=== PATIENT | male | born 1990 | race Caucasian/White ===

== ENCOUNTER 2022-05-30 10:23 | Emergency (ER) | payer OTHER, SELFPAY ==
[2022-05-30 10:36] VITALS: BP 132/96; PULSE 77; RESP 18; TEMP 36.3; O2SAT 100
--- NOTE | 2022-05-30 10:52 | ED.GENADULT ---
HPI - General Adult General Chief complaint: Ear Stated complaint: Rt ear pain History of Present Illness HPI narrative: Patient is a 32-year-old male who presents to the [facility] via [facility] for an evaluation of right ear pain that began last night. Additionally, he reports a fullness sensation. He also reports a sore throat and postnasal drip that began 3 to 4 days prior to ear pain. DayQuil provides some relief. He has had no ear pain relief after attempting to use peroxide in right ear. Nothing worsens symptoms. Patient 2-year-old daughter has RSV. Related Data Home Medications Medication Instructions Recorded Confirmed lisinopril 10 mg tablet 10 mg DAILY 09/02/19 05/30/22 Allergies Allergy/AdvReac Type Severity Reaction Status Date / Time No Known Allergies Allergy Verified 05/30/22 10:47 Review of Systems Review of Systems: Pertinent negatives fever, chills, sweats, change in appetite, poor p.o. intake, malaise, headache, sinus problems, tinnitus, vertigo, lightheadedness, hearing loss, muffled hearing, ear drainage, nausea, vomiting, drooling, difficulty swallowing, cough, shortness of breath, lymphadenopathy, chest pain, heart palpitations, and heart murmur. [facility] Past Medical History Medical History Hypertension Social History Social History Gender identity (if verbalized by the patient): Male Exam Narrative: GENERAL: Well-appearing, well-nourished, and in no acute distress. HEAD: Normocephalic, atraumatic. No sinus tenderness or facial swelling appreciated. EYES: PERRLA and EOMI. No evidence of erythema, swelling, or drainage. ENT: Bilateral external ears and ear canals normal. Left TM normal. Right TM with marked erythema and bulging. Moderate amount of opaque fluid noted to right TM. No TM perforation. Nares clear, no rhinorrhea or epistaxis. Bilateral turbinates without erythema/ swelling. Mucous membranes moist and pink. Uvula is midline without erythema and swelling. No evidence of petechial rash, cobblestoning, lesions, ulcers, erythema, swelling, exudates, peritonsillar abscess, tenting, or drooling. Breath odor and voice normal. NECK: Supple. No Lymphadenopathy or nuchal rigidity appreciated. CHEST: Bilateral lung dalal are clear to auscultation. No respiratory distress. No evidence of cough or pleuritic cp upon examination. HEART: Regular rate and rhythm. No murmur, gallop, or rub heard. EXTREMITIES: Normal range of motion. No edema. SKIN: Warm, dry, no rash. NEURO: No focal deficits. Alert and oriented x3. Course Course Emergency Course: The patient/guardian displays adequate decision making capability and despite a detailed discussion of alternatives, benefits, risks, and consequences refuses rapid COVID, rapid strep, and influenza testing. Level of Care: Express Care Visit Vital Signs Vital signs: Vital Signs Temperature 97.3 F L 05/30/22 10:36 Pulse Rate 77 05/30/22 10:36 Respiratory Rate 18 05/30/22 10:36 Blood Pressure 132/96 H 05/30/22 10:36 Pulse Oximetry 100 05/30/22 10:36 Oxygen Delivery Room Air 05/30/22 10:36 Temperature 97.3 F L 05/30/22 10:36 Pulse Rate 77 05/30/22 10:36 Respiratory Rate 18 05/30/22 10:36 Blood Pressure 132/96 H 05/30/22 10:36 Pulse Oximetry 05/30/22 10:36 Oxygen Delivery Room Air 05/30/22 10:36 Medical Decision Making Differential Diagnosis Differential Diagnosis: AOM, EOM, URI Vital Signs Vital Signs: Vital Signs Temperature 97.3 F L 05/30/22 10:36 Pulse Rate 77 05/30/22 10:36 Respiratory Rate 05/30/22 10:36 Blood Pressure 132/96 H 05/30/22 10:36 Pulse Oximetry 100 05/30/22 10:36 Oxygen Delivery Room Air 05/30/22 10:36 Temperature 97.3 F L 05/30/22 10:36 Pulse Rate 77 05/30/22 10:36 Respiratory Rate 05/30/22 10:36 Bl
== END 2022-05-30 11:05 | disposition home or self-care (01) ==
PROVIDERS: Emergency Provider Nurse Practitioner Family
DX: H66.91 Otitis media, unspecified, right ear (principal); I10 Essential (primary) hypertension
CPT/HCPCS: 99213; G0463

== ENCOUNTER 2024-09-16 09:31 | Emergency (ER) | payer OTHER, SELFPAY ==
[2024-09-16 09:55] VITALS: BP 135/96; PULSE 63; RESP 18; TEMP 36.1; O2SAT 100
--- NOTE | 2024-09-16 10:46 | ED_ITS ---
HPI - Skin/Abscess/Foreign Bdy General Chief complaint: Skin/Abscess/Foreign Body Stated complaint: rt foot pain Source: patient Mode of arrival: ambulatory Limitations: no limitations History of Present Illness HPI narrative: 34-year-old male presents to [facility] with complaints of pain, swelling, erythema and warmth to joint to right great toe for the past 5 days. Patient reports he was evaluated by his primary care provider and given prednisone for unknown diagnosis. Patient reports he is concerned about gout. Patient denies injury to area. Patient denies fever, body aches, chills, nausea vomiting or diarrhea. Onset (ago): day(s) (5) Relieving factors: none Exacerbating factors: palpation and movement Treatments prior to arrival: corticosteroid Related Data Home Medications ?Medication ?Instructions ?Recorded ?Confirmed ?Last Taken ?Type lisinopril 10 mg tablet 10 mg DAILY 09/02/19 05/30/22 Unknown History prednisone 20 mg tablet mg 09/16/24 Unknown History Allergies Allergy/AdvReac Type Severity Reaction Status Date / Time No Known Allergies Allergy Verified 09/16/24 10:10 Review of Systems Constitutional: Constitutional: Denies chills, Denies fatigue, Denies fever(s) and Denies weakness ENT: Denies nasal congestion and Denies sore throat Respiratory: Respiratory: Denies cough, Denies dyspnea and Denies wheezing Gastrointestinal: Gastrointestinal: Denies diarrhea, Denies nausea and Denies vomiting Musculoskeletal: Comments: Pain, swelling, warmth and redness to joint of right great toe Neurologic: Denies dizziness, Denies headache(s) and Denies focal weakness PMFSH Past Medical History Medical History Hypertension Social History Social History Gender identity (if verbalized by the patient): Male Exam Const: General: healthy appearing and no acute distress Nutritional Appearance: well nourished Orientation/consciousness: patient oriented x3 Limitations: no limitations HENMT: Head: normal to inspection Eyes: Conjunctivae: conjunctivae normal Pupils: Equal, round and reactive pupils present Neck: Neck: normal visual inspection Resp: Effort & Inspection: normal respiratory effort and not labored Auscultation: clear to auscultation bilaterally, no crackles, no rales, no rhonchi and no wheezes Cardio: Rate: regular rate Rhythm: regular rhythm Heart sounds: no murmurs Skin: Other: Redness, warmth and mild swelling noted to MTP joint of right great toe; symptoms are likely representation of gout. Neuro: General: patient oriented x3 and moves all extremities Speech: normal speech Other: Patient limping with ambulation Psych: Mental Status: mental status grossly normal Affect: normal affect Course Course Level of Care: Express Care Visit Vital Signs Vital signs: Vital Signs Temperature 36.1 C L 09/16/24 09:55 Pulse Rate 63 09/16/24 09:55 Respiratory Rate 18 09/16/24 09:55 Blood Pressure 135/96 H 09/16/24 09:55 Pulse Oximetry 100 09/16/24 09:55 Oxygen Delivery Room Air 09/16/24 09:55 Temperature 36.1 C L 09/16/24 09:55 Pulse Rate 63 09/16/24 09:55 Respiratory Rate 18 09/16/24 09:55 Blood Pressure 135/96 H 09/16/24 09:55 Pulse Oximetry 100 09/16/24 09:55 Oxygen Delivery Room Air 09/16/24 09:55 MDM - Skin/Abscess/Foreign Bdy MDM Narrative Medical decision making narrative: Discussed gout and dietary recommendations. Encouraged patient follow-up with primary care provider discussed allopurinol. Educated patient to proceed to the emergency room if symptoms worsen Differential Diagnosis Differential diagnosis: Likely other (Cellulitis, insect bite) Critical Care Time Critical Care Time Critical Care Time: No Discharge Plan Discharge Clinical Impression: Gout Qualifiers: Gout site: toe Gout etiology: unspecified cause Chronicity: acute Laterality: right Qualified Code(s): M10.9 - Gout, unspecified Patient Disposition: Home, Self-Care Condition: Stable Instructions: Low Purine Diet (ED), Gout (ED) Additional Instructions: Elevate right foot apply cool compresses to area of pain Take colchicine as prescribed Take indomethacin as prescribed for pain, do not take other NSAIDs while taking medication Follow-up with primary care provider to discuss allopurinol Proceed to the emergency room if symptoms worsen Patient Language: Syrian Prescriptions: New colchicine 0.6 mg capsule 0.6 mg PO DIRECTED Qty: 3 0RF Rx Instructions: Take 2 capsules (1.2mg) x1, then 1 capsule (0.6mg) 1 hour later indomethacin 50 mg capsule 50 mg PO BID 7 Days Qty: 14 0RF Rx Instructions: administer with food or milk No Action prednisone 20 mg tablet lisinopril 10 mg tablet 10 mg DAILY Follow-up/Referrals: UNKNOWN,DOCTOR [Primary Care Provider] - Time of Disposition: 10:53
--- OUTSIDE RECORDS SUMMARY | 2024-09-23 12:02 | XMS_ITS | Clinical Summary ---
Author Organization [facility] Address [address] [place] [address]. [place] [address] [place] [address] Care Team Providers Care Air Liaison And Special Staff Name Role Phone Myron Sandhu MD Primary Care Provider + Allergies No known active allergies Medications lisinopril (PRINIVIL) 20 MG tabletIndication s:Essential hypertension TAKE 1 TABLET BY MOUTH EVERY DAY 30 tablet 4 Active colchicine 0.6 MG tabletIndication s:Idiopathic gout involving toe of right foot, unspecified chronicity Take 1 tablet (0.6 mg total) by mouth 3 (three) times daily. 15 tablet 4 Active allopurinol (ZYLOPRIM) 100 MG tabletIndication s:Idiopathic gout involving toe of right foot, unspecified chronicity Take 1 tablet (100 mg total) by mouth daily. 30 tablet 4 Active traMADol (ULTRAM) 50 MG tabletIndication s:Acute Pain < 7 Day Supply Take 1 tablet (50 mg total) by mouth 3 (three) times daily as needed for Pain. Indication s: Acute Pain < 7 Day Supply 21 tablet 4 025 Active lisinopril (PRINIVIL) 20 MG tabletIndication s:Essential hypertension TAKE 1 TABLET BY MOUTH EVERY DAY 30 tablet 4 024 Discontinued predniSONE (DELTASONE) 20 MG tabletIndication s:Idiopathic gout involving toe of right foot, unspecified chronicity Take 1 tablet (20 mg total) by mouth 2 (two) times daily for 7 days. 14 tablet 4 024 Active Problems Problem Noted Date Diagnosed Date Essential hypertension 11/22/2020 Encounters Date Type Department Care Team Description 09/22/2024 8:05 AM YEAST DISTILLER Hospital Encounter [facility] [address] [place] [address] Myron Sandhu MD Arrived 09/22/2024 Telephone [facility] [address] [place] [address] Myron Sandhu MD Lab Results; Pain; Medication Request 09/22/2024 Travel 09/18/2024 Telephone [facility] [address] [place] [address] Myron Sandhu MD Medication Request 09/13/2024 9:40 AM YEAST DISTILLER Office Visit [facility] [address] [place] [address] Myron Sandhu MD Arthritis (/Flare up in right big toe) 09/13/2024 Travel from Last 3 Months Immunizations Name Administration Dates Next Due Dtap 02/03/1994, 0,1989,1989,0 1989 Hepatitis B (Generic: Adult) 04/16/2014,12/06/19 14,11/02/2013 Hepatitis B Pediatric 05/14/1993,10/23/1992,06/28 MMR 02/03/1994,07/25/1990 Opv 02/03/1994,07/25/1990,1989 ,1989 Synagis (palivizumab) 100mg/mL 07/25/1990 Td 01/25/2013,11/23/2002 Tdap (Adacel) 08/27/2021,11/17/2002 Family History Medical History Relation Comments Hypertension Father Hypertension Paternal Grandfather Stroke Paternal Grandfather Dementia Paternal Grandmother Relation Status Comments Father Alive Mother Alive Paternal Grandfather Paternal Grandmother Social History Tobacco Use Types Packs/Day Years Used Date Smoking Tobacco: Never Smokeless Tobacco: Current Chew Tobacco Cessation:Ready to Q uit: Yes; Counseling Given: Yes Comments:Zyn pouches Alcohol Use Standard Drinks/Week Comments Yes 0 (1 standard drink = 0.6 oz pur e alcohol) PHQ-2 Answer Date Recorded Patient Health Questionnaire-2 Score 0 09/13/2024 Sex and Gender Information Value Date Recorded Sex Assigned at Not on file Legal Sex Male 3:35 PM CDT Gender Identity Male 01/02/2022 9:13 AM CDT Sexual Orientation Straight 01/02/2022 9: 13 AM CDT Travel History Travel Start Travel End [place] 08/14/2024 09/13/2024 Last Filed Vital Signs Vital Sign Reading Time Taken Comments Blood Pressure 152/84 09/13/2024 9:31 AM YEAST DISTILLER Pulse 101 09/13/2024 9:31 AM YEAST DISTILLER Temperature 36.3 ??C (97.4 ??F) 09/13/2024 9:31 AM CS T Respiratory Rate 20 09/13/2024 9:31 AM YEAST DISTILLER Oxygen Saturation 99% 09/13/2024 9:31 AM YEAST DISTILLER Inhaled Oxygen Concentration - - Weight 107.2 kg (236 lb 6.4 oz) 09/13/2024 9:31 AM YEAST DISTILLER Height 175.3 cm (5' 9 ) 09/13/2024 9:31 AM YEAST DISTILLER Body Mass Index 34.91 09/13/2024 9:31 AM YEAST DISTILLER Plan of Treatment Health Maintenance Due Date Last Done Comments Hepatitis C 2007 COVID-19 Vaccine ( season) 2024 Influenza Adult (#1) 2024 Annual Physical 08/23/2024 08/23/2023 DTaP, Tdap and Td Vaccines (10 - Td or Tdap) 08/27/2031 08/27/2021, 01/25/2013, 11/23/2002, Additional history exists Hepatitis B Vaccines Completed 04/16/2014, 12/05/2013, 11/02/2013, Additional history exists HPV Vaccines Aged Out No longer eligi ble based on patient's age to complete this topic Meningococcal Vaccine Aged Out No odalis tania eligible based on patient's age to complete this topic Pneumococcal Vaccine: Pediatrics (0 to 5 Years) and At-Risk Patients (6 to 64 Years) Aged Out No longer eligible based on patient's age to complete this topic RSV Immunizations Under 20 Months Aged Out No longer eligible based on patient's age to complete this topic Procedures Procedure Name Priority Date/Time Associated Diagnosis Comments URIC ACID BLOOD Routine 09/22/2024 8:12 AM YEAST DISTILLER Idiopathic gout involving toe of right foot, unspecified chronicity LIPID PANEL Routine 09/22/2024 8:12 AM YEAST DISTILLER Hyperlipidemia, unspecified hyperlipidemia type COMPREHENSIVE METABOLIC PANEL Routine 09/22/2024 8:12 AM YEAST DISTILLER Essential hypertension Hyperlipidemia, unspecified hyperlipidemia type from Last 3 Months Results * (ABNORMAL) COMPREHENSIVE METABOLIC PANEL (09/22/2024 8:12 AM YEAST DISTILLER) GLUCOSE 146(H) 70 - 99 MG/DL 09/22/2024 9:36 AM [facility] BUN 15 7 - 18 MG/DL 09/22/2024 9:36 AM [facility] CREATININE S/P/B 1.21 0.7 - 1.3 MG/DL 09/22/2024 9:36 AM [facility] SODIUM S/P/B 137 136 - 145 MMOL/L 09/22/2024 9:36 AM [facility] POTASSIUM S/P/B 4.9 3.5 - 5.1 MMOL/L 09/22/2024 9:36 AM [facility] CHLORIDE S/P/B 99(L) 100 - 108 MMOL/L 09/22/2024 9:36 AM [facility] CO2 31.6 21 - 32 MMOL/L 09/22/2024 9:36 AM [facility] CALCIUM S/P/B 9.1 8.5 - 10.1 MG/DL 09/22/2024 9:36 AM [facility] BILIRUBIN TOTAL S/P/B 0.9 0.2 - 1.2 MG/DL 09/22/2024 9:36 AM [facility] Comment: THIS ASSAY IS NOT RECOMMENDED FOR PATIENTS UNDERGOING TREATMENT WITH ELTROMBOPAG DUE TO THE POTENTIAL FOR FALSELY ELEVATED RESULTS. TOTAL PROTEIN S/P/B 7.9 6.4 - 8.2 G/DL 09/22/2024 9:36 AM [facility] ALBUMIN S/P/B 3.8 3.4 - 5.0 G/DL 09/22/2024 9:36 AM [facility] AST 20 15 - 37 U/L 09/22/2024 9:36 AM [facility] ALT 42 16 - 60 U/L 09/22/2024 9:36 AM [facility] ALKALINE PHOSPHATASE S/P/B 55 50 - 136 U/L 09/22/2024 9:36 AM [facility] ANION GAP 6.4 5 - 15 MMOL/L 09/22/2024 9:36 AM [facility] BUN CREATININE RATIO 12.4 6 - 26 09/22/2024 9:36 AM [facility] A/G RATIO 0.9(L) 1.0 - 2.0 RATIO 09/22/2024 9:36 AM [facility] GFR ESTIMATE 80(L) >90 ML/MIN/1.7 3 M2 09/22/2024 9:36 AM [facility] Comment: NOTE: eGFR is not calculated for patients <18 years of age. This is an estimated GFR calculation using the new CKD EPI creatinine equation without race and so does not require a correction factor for race. This estimated GFR should not be used for calculating drug doses. 09/22/2024 8:12 AM YEAST DISTILLER Myron Sandhu MD LABORATORY Final Re sult [facility] [address] [place] [address], * LIPID PANEL (09/22/2024 8:12 AM [facility] Signature CHOLESTEROL 150 <200 MG/DL 09/22/2024 9:36 AM [facility] TRIGLYCERIDES 132 <150 MG/DL 09/22/2024 9:36 AM [facility] HDL 53 >40.0 MG/DL 09/22/2024 9:36 AM [facility] LDL (CALCULATED) 71 <100 MG/DL 09/22/20 9:36 AM [facility] NON HDL CHOLESTEROL 97 <130 MG/DL 09/22 9:36 AM [facility] Comment: NOTE: WHEN THE TRIGLYCERIDES ARE >200 mg/dL, NON HDL C IS A SECONDARY TARGET OF THERAPY, WITH A GOAL 30 mg/dL HIGHER THAN THE IDENTIFIED LDL C GOAL. CHOL/HDL RATIO 2.8 0.0 - 4.5 09/22/2024 9:36 AM [facility] VLDL CALCULATION 26 5 - 55 MG/DL 09/22/2024 9:36 AM [facility] LIPID INTERPRETATION 09/22/2024 9:36 AM [facility] Comment: NIH CONCENSUS REPORT RECOMMENDATIONS: ?ADULT ?CHILD ??LOW RISK: ?CHOLESTEROL ? <200 ? <170 ?TRIGLYCERIDE ?<150 ?--- ?HDL ? >=60 ?--- ?LDL ? <100 ? <110 ??BORDERLINE: ?CHOLESTEROL ? 200-239 ?? 170-199 ?TRIGLYCERIDE ?150-199 ? --- ?HDL ?40-59 ?--- ?LDL ? 100-159 ?? 110-129 ??HIGH RISK: ?CHOLESTEROL ? >=240 ?>=200 ?TRIGLYCERIDE ?>=200 ? --- ?HDL ?<40 ?--- ?LDL ? >=160 ?>=130 09/22/2024 8:12 AM YEAST DISTILLER Myron Sandhu MD LABORATORY Final Ara crowell Performing Organization Address [facility] de Phone Number [facility] [address] [place] [address], * (ABNORMAL) URIC ACID BLOOD (09/22/2024 8:12 AM YEAST DISTILLER) URIC ACID 7.9(H) 3.5 - 7.2 MG/DL 09/22/2024 9:36 AM YEAST DISTILLER [facility] 09/22/2024 8:12 AM YEAST DISTILLER Myron Sandhu MD LABORATORY Final Re sult Performing Organization Address [facility] Co de Phone Number [facility] [address] [place] [address], from Last 3 Months Insurance [employer] [facility] Care Teams Air Liaison And Special Staff Relationship Specialty Start Date End Date Myron Sandhu MD [address] [facility] [address] [place] [address] PCP - General FAMILY PRACTICE 12/31/21
--- OUTSIDE RECORDS SUMMARY | 2024-09-23 12:02 | XMS_ITS | Encounter Summary ---
Author Organization [facility] Address [address] [place] [address]. [place], [place] [id number] [place] [address] Care Team Providers Care Project Coach Name Role Phone Myron Sandhu MD Primary Care Provider + Encounter Details Date Type Department Care Team (Latest Contact Info) Description 09/13/2024 Travel Social History Tobacco Use Types Packs/Day Years Used Date Smoking Tobacco: Never Smokeless Tobacco: Current Chew Comments:Zyn pouches Alcohol Use Standard Drinks/Week Comments [...] CDT Travel History Travel Start Travel End [place] 08/14/2024 09/13/2024 documented as of this encounter Plan of Treatment Not on file documented as of this encounter Visit Diagnoses Not on filedocumented in this encounter Additional Health Concerns Assessment Noted Time PHQ-9 Depression Total Score: 11 023 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
--- OUTSIDE RECORDS SUMMARY | 2024-09-23 12:03 | XMS_ITS | Encounter Summary ---
Author Organization [facility] Address [address] [place] [address]. [place], [place] [id number] [place], [place] [id number] Care Team Providers Care Manager Card Name Role Phone Enrico Roe MD Primary Care Provider Rachel vailable Encounter Details Date Type Department Care Team (Latest Contact Info) Description 09/07/2021 Travel Social History Tobacco Use Types Packs/Day Years Used Date Smoking Tobacco: Never Smokeless Tobacco: Current Chew Alcohol Use Standard Drinks/Week Comments Yes 0 (1 standard drink = 0.6 oz pur e alcohol) PHQ-2 Answer Date Recorded PHQ-2 Score - If the patient scores above 3, please move on to questions 3-9 0 11/22/2020 Sex and Gender Information Value Date Recorded Sex Assigned at Not on file Legal Sex Male 3:35 PM CDT Gender Identity Male 01/02/2022 9:13 AM CDT Sexual Orientation Straight 01/02/2022 9: 13 AM CDT Travel History Travel Start Travel End [place] 08/14/2024 09/13/2024 COVID-19 Exposure Response Date Recorded In the last month, have you been in contact with someone who was confirmed or suspected to have Coronavirus / COVID-19? 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
--- OUTSIDE RECORDS SUMMARY | 2024-09-23 12:03 | XMS_ITS | Encounter Summary ---
Author Organization [facility] Address [address] [place] [address]. [place] [address] [place] [address] Care Team Providers Care Loan Documents Closer Name Role Phone Enrico Roe MD Primary Care Provider Rachel vailable Reason for Visit * Reason Comments Establish Care new pt Encounter Details Date Type Department Care Team (Late st Contact Info) Description 11/22/2020 10:40 AM OBSTETRICIAN AND GYNAECOLOGIST Office Visit [address] [phone] Enrico Roe MD Establish Care (new pt) Social History Tobacco Use Types Packs/Day Years [...] CDT Travel History Travel Start Travel End [place] 08/14/2024 09/13/2024 COVID-19 Exposure Response Date Recorded In the last month, have you been in contact with someone who was confirmed or suspected to have Coronavirus / COVID-19? No / Unsure 11/22/2020 10:11 AM OBSTETRICIAN AND GYNAECOLOGIST documented as of this encounter Last Filed Vital Signs Vital Sign Reading Time Taken Comments Blood Pressure 120/82 11/22/2020 10:56 AM OBSTETRICIAN AND GYNAECOLOGIST Pulse 90 11/22/2020 10:24 AM OBSTETRICIAN AND GYNAECOLOGIST Temperature 36.4 ??C (97.6 ??F) 11/22/2020 10:[address] Respiratory Rate 18 11/22/2020 10:24 AM OBSTETRICIAN AND GYNAECOLOGIST Oxygen Saturation 99% 11/22/2020 10:24 AM OBSTETRICIAN AND GYNAECOLOGIST Inhaled Oxygen Concentration - - Weight 108.9 kg (240 lb) 11/22/2020 10:24 AM OBSTETRICIAN AND GYNAECOLOGIST Height 176.5 cm (5' 9.5 ) 11/22/2020 10:24 AM CS T Body Mass Index 34.93 11/22/2020 10:24 AM OBSTETRICIAN AND GYNAECOLOGIST documented in this encounter Progress Notes * Enrico Roe MD - 11/22/2020 10:40 AM CST REASON FOR VISIT Establish Care (new pt) HPI Presents to clinic to establish care History of hypertension Patient had established with a mental health clinic who recommended testosterone injections Patient has lab work today which notes a normal level of testosterone Patient would like significant amount or not he needs testosterone injections Patient initially went to that clinic due to weight loss concerns 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 the last few pounds he would like to He denies any fatigue, weakness, sexual performance issues Hypertension 144/86 initially in clinic today Pulse is 90 Patient states he has whitecoat syndrome Note home readings are anywhere from 118 systolic up to 140 systolic Has been on lisinopril 20 mg, was recently titrated up Denies headaches, vision changes, chest pain, shortness of breath, decreased urine output Skin lesion Small skin lesion on the lateral aspect of his leg, noticed a few days ago Has been using lotion without results No prior history of skin issues but states his dad has several issues the details of which she is not familiar Healthcare maintenance Patient denies any family history of colon or prostate cancer Patient has 1 sexual partner, monogamous, no reasonable. His partner is monogamous to the best of his knowledge Denies any urinary issues or concerns for STD PHQ-9 is negative REVIEW OF SYSTEMS 10 point ROS negative as otherwise specified in HPI History reviewed. No pertinent past medical history. Past Surgical History: Procedure Laterality Date ??? ANESTH,NOSE,SINUS SURGERY ??? FEMUR FRACTURE SURGERY Right Social History Tobacco Use ??? Smoking status: Never Smoker ??? Smokeless tobacco: Current User Types: Chew Substance Use Topics ??? Alcohol use: Yes ??? Drug use: Never Family History Problem Relation Name Age of Onset ??? Hypertension Father ??? Hypertension Paternal Grandfather No Known Allergies Outpatient Medications Marked as Taking for the 11/22/20 encounter (Office Visit) with Enrico Roe MD Medication Sig Dispense Refill ??? lisinopril 20 MG tablet Take 20 mg by mouth daily. ??? triamcinolone 0.1 % ointment Apply topically 2 (two) times daily. 15 g 0 PHYSICAL EXAM Physical Exam Vitals signs and nursing note reviewed. Constitutional: General: He is not in acute distress. Appearance: He is well-developed. Comments: Overall muscular in appearance HENT: Head: Normocephalic and atraumatic. Eyes: General: No scleral icterus. Extraocular Movements: Extraocular movements intact. Conjunctiva/sclera: Conjunctivae normal. Neck: Musculoskeletal: Normal range of motion. Cardiovascular: Rate and Rhythm: Normal rate and regular rhythm. Heart sounds: Normal heart sounds. No murmur. Pulmonary: Effort: Pulmonary effort is normal. No respiratory distress. Breath sounds: Normal breath sounds. No wheezing. Abdominal: General: Bowel sounds are normal. There is no distension. Palpations: Abdomen is soft. Tenderness: There is no abdominal tenderness. Musculoskeletal: Normal range of motion. Skin: General: Skin is warm and dry. Findings: No rash. Comments: Left lateral lower extremity has small approximately 3 mm ovoid patch that is nonscaling,slightly erythematous. Under dermoscopy there is no carlos formation or telangiectasia, no scale observed Neurological: General: No focal deficit present. Mental Status: He is alert. Cranial Nerves: No cranial nerve deficit. Sensory: No sensory deficit. Coordination: Coordination normal. Gait: Gait normal. Psychiatric: Mood and Affect: Mood normal. Behavior: Behavior normal. Filed Vitals: 11/22/20 1024 11/22/20 1056 BP: (!) 144/86 120/82 Pulse: 90 Resp: 18 Temp: 97.6 ??F (36.4 ??C) SpO2: 99% Weight: 108.9 kg (240 lb) Height: 5' 9.5 (1.765 m) Body mass index is 34.93 kg/m??. ASSESSMENT AND PLAN 1. Skin lesion triamcinolone 0.1 % ointment 2. Essential hypertension 1. No concerning features under dermoscopy, likely eczema. Urged to trial regular skin moisturization with water-based lubricant. If no results in a week or 2 can trial triamcinolone as prescribed above. 2. Repeat blood pressure was within normal limits. We will continue lisinopril 20 mg daily. Reviewed lab work which patient brought with him today, no concerns for electrolyte derangement. Needs repeat labs in June 2021. Healthcare maintenance Routine labs as above No family history which would indicate early need for prostate or colon screening Counseled on regular diet and exercise Return in about 8 months (around 07/22/2021). Enrico oRe MD 11/22/2020 ETRICIAN AND GYNAECOLOGIST documented in this encounter Plan of Treatment Not on file documented as of this encounter Visit Diagnoses Diagnosis Skin lesion- Primary Unspecified disorder of skin and subcutaneous tissue Essential hypertension Unspecified essential hypertension documented in this encounter Care Teams Loan Documents Closer Relationship Specialty Start Date End Date Enrico Roe MD PCP - General FAMILY PRACTICE 11/22/20 12/30/21 documented as of this encounter
--- OUTSIDE RECORDS SUMMARY | 2024-09-23 12:03 | XMS_ITS | Encounter Summary ---
Author Organization [facility] Address [address] [place] [address]. [place] [address] [place] [address] Care Team Providers Care Fresh Meat Grader Name Role Phone Myron Jc MD Primary Care Provider + Reason for Visit * Reason Comments General Illness Covid exposure 3-4 d ays ago, needs neg test to go back to work, has chest tightness Encounter Details Date Type Department Care Team (Late st Contact Info) Description 03/17/2022 2:20 PM CDT Office Visit [address] [phone] Lilo Butler, SERVICE MECHANIC [address] [facility] [address] [place] [address] General Illness (Covid exposure 3-4 days ago, needs neg test to go back to work, has chest tightness) Social History Tobacco Use Types Packs/Day Years Used Date Smoking Tobacco: Never Smokeless Tobacco: Current Chew Alcohol Use Standard Drinks/Week Comments Yes 0 (1 standard drink = 0.6 oz pur e alcohol) PHQ-2 Answer Date Recorded PHQ-2 Score - If the patient scores above 3, please move on to questions 3-9 0 03/17/2022 Sex and Gender Information Value Date Recorded Sex Assigned at Not on file Legal Sex Male 3:35 PM CDT Gender Identity Male 01/02/2022 9:13 AM CDT Sexual Orientation Straight 01/02/2022 9: 13 AM CDT Travel History Travel Start Travel End [place] 08/14/2024 09/13/2024 COVID-19 Exposure Response Date Recorded In the last 10 days, have ashley key been in contact with someone who was confirmed or suspected to have Coronavirus/COVID-19? Yes 03/17/2022 3:27 PM CDT documented as of this encounter Last Filed Vital Signs Vital Sign Reading Time Taken Comments Blood Pressure 136/92 03/17/2022 3:35 PM CDT Pulse 104 03/17/2022 3:35 PM CDT Temperature 36.1 ??C (97 ??F) 03/17/2022 3:35 PM CDT Respiratory Rate 16 03/17/2022 3:35 PM CDT Oxygen Saturation 99% 03/17/2022 3:35 PM CDT Inhaled Oxygen Concentration - - Weight 104.8 kg (231 lb) 03/17/2022 3:35 PM CDT Height 175.3 cm (5' 9 ) 03/17/2022 3:35 PM CDT Body Mass Index 34.11 03/17/2022 3:35 PM CDT documented in this encounter Patient Instructions * Patient Instructions* Lilo Butler NP - 03/17/2022 4:11 PM CDT COVID is a viral illness. At this time we have a medication called Paxlovid which certain patients can qualify for to help with symptoms. If this is an option for you, we have already discussed it and it has been prescribed. The other care is supportive care as below. - Increase fluid intake and get plenty of rest. - Sore throat-May try as needed: salt water gargles (1/4-1/2 teaspoon of salt per 8 oz glass warm water), ibuprofen (Advil) as directed on the bottle for age/weight--take with food, Chloroseptic spray as directed on the bottle for age/weight, cough drops as directed on the package for age/weight orhard candy, or teaspoon honey or heavy peach syrup. - Nasal congestion-May try as needed: Antwan's Vapor Rub, humidifier, nasal saline spray as well as nasal saline flushes/Hiwot Pot and Flonase. May try oral antihistamines (claritin/cara/zyrtec) as directed on the package for age/weight - Fever/Comfort: May try Tylenol (acetaminophen) or Advil/Motrin (ibuprofen) as directed on the bottle for age/weight as needed. - Cough: May also try teaspoon honey or heavy peach syrup every 4 hrs as needed. RED FLAGS for ED/911: - Any signs of dehydration; decrease intake of fluids, decrease in voids, unable to keep fluids down for over 24 hours. - Watch for signs and symptoms of respiratory distress including the following: shortness of breath, increased respiratory rate, wheezing, difficulty breathing, sternal notch/intercostal retractions,and/or accessory muscle use during respiration. Any for signs and symptoms of abdominal distress including: increase in frequency, intensity, and / or duration of abdominal pain; increased frequency of or worsening emesis, bilious emesis, and/ or bloody emesis; bloody stools; and / or increased distension of and / or firmness of abdomen. Guidelines for staying home and self isolation due to illness. - If you test positive for COVID-19, you must isolate, regardless of vaccination status. Stay home for 5 days. If you have no symptoms or your symptoms are resolving after 5 days, you can leave your house. Continue to wear a mask around others for 5 additional days. If you have a fever, continue to stay home until your fever resolves. Information on quarantining if you were exposed to someone with COVID-19: If you have been boosted OR completed the primary series of Pfizer or Moderna vaccine within the last 6 months OR completed the primary series of J&J vaccine within the last 2 months: Wear a maskaround others for 10 days. If you develop symptoms get a test and stay home. If you completed the primary series of Pfizer or Moderna vaccine over 6 months ago and are NOT boosted OR completed the primary series of J&J over 2 months ago and are NOT booster OR are unvaccinated ? Stay home for 5 days. After that continue to wear a mask around others for 5 additional days. o If you cannot quarantine, you must wear a mask for 10 days. ? If you develop symptoms get a test and stay home. documented in this encounter Progress Notes * Lilo Butler NP - 03/17/2022 2:20 PM CDT Reason for Visit: General Illness (Covid exposure 3-4 days ago, needs neg test to go back to work, has chest tightness) History of Present Illness: Arron Field is a 32-year-old male presenting today to [facility] in [place] complaining of dry cough and chest tightness for the past 4 days. Pt has not been taking anything for symptoms. Pt notes PMH as below. Pt continues to eat and drink well with adequ ate output. Pt admits to sick contacts via work. Pt denies other nausea, vomiting, diarrhea, abdominal pain, muscle pain and headache. Of note pt has tested himself at home with negative results. Pt is not vaccinated against COVID. ROS: Review of Systems HENT: Positive for congestion. Respiratory: Positive for cough and chest tightness. All other systems reviewed and are negative. Medications: Current Outpatient Medications: ??? lisinopril 20 MG tablet, Take 1 tablet (20 mg total) by mouth daily., Disp: 90 tablet, Rfl: 1 No Known Allergies No past medical history on file. Past Surgical History: Procedure Laterality Date ??? ANESTH,NOSE,SINUS SURGERY ??? FEMUR FRACTURE SURGERY Right Social History Socioeconomic History ??? Marital status: Tobacco Use ??? Smoking status: Never Smoker ??? Smokeless tobacco: Current User Types: Chew Substance and Sexual Activity ??? Alcohol use: Yes ??? Drug use: Never Family History Problem Relation Name Age of Onset ??? Hypertension Father ??? Hypertension Paternal Grandfather ??? Stroke Paternal Grandfather Family Status Relation Name Status ??? Mother Alive ??? Father Alive ??? PGF (Not Specified) Physical Exam Vitals reviewed. Constitutional: General: He is not in acute distress. Appearance: He is well-developed. He is diaphoretic. HENT: Right Ear: Tympanic membrane normal. Left Ear: Tympanic membrane normal. Nose: Mucosal edema and rhinorrhea present. Mouth/Throat: Uvula is midline. Mucous membranes are moist. Oropharyngeal exudate (PND) present. Eyes: Pupils: Pupils are equal, round, and reactive to light. Cardiovascular: Rate and Rhythm: Normal rate and regular rhythm. Heart sounds: Normal heart sounds. Pulmonary: Effort: Pulmonary effort is normal. No respiratory distress. Breath sounds: Normal breath sounds. Musculoskeletal: Cervical back: Normal range of motion. Skin: General: Skin is warm. Neurological: Mental Status: He is alert. Filed Vitals: 03/17/22 1535 BP: (!) 136/92 Pulse: 104 Resp: 16 Temp: 97 ??F (36.1 ??C) TempSrc: Temporal SpO2: 99% Weight: 104.8 kg (231 lb) Height: 5' 9 (1.753 m) Results for orders placed or performed in visit on 03/17/22 CORONAVIRUS (COVID-19) ANTIGEN Specimen: NASAL Result Value Ref Range CORONAVIRUS ANTIGEN IA POSITIVE NEGATIVE Internal Control: VALID VALID Diagnoses/Impression: 1. COVID CORONAVIRUS (COVID-19) ANTIGEN Recommendations and Plan: Rapid antigen testing for COVID-19 Positive in office today. Discussed differentials and etiologies. Reviewed supportive care as well. Encouraged good hand washing, temperature monitoring, cough hygiene and isolation of illness if fever begins. Discussed signs and symptoms of worsening and when to report to the ED vs. PCP for follow. Pt demonstrated understanding. Reviewed guidelines from CDC with pending testing: Guidelines for staying home and self isolation due to illness. - If you test positive for COVID-19, you must isolate, regardless of vaccination status. ??? Stay home for 5 days. ??? If you have no symptoms or your symptoms are resolving after 5 days, you can leave your house. ??? Continue to wear a mask around others for 5 additional days. ??? If you have a fever, continue to stay home until your fever resolves. Information on quarantining if you were exposed to someone with COVID-19: ??? If you have been boosted OR completed the primary series of Pfizer or Moderna vaccine within the last 6 months OR completed the primary series of J&J vaccine within the last 2 months: Wear a mask around others for 10 days. If you develop symptoms get a test and stay home. ??? If you completed the primary series of Pfizer or Moderna vaccine over 6 months ago and are NOT boosted OR completed the primary series of J&J over 2 months ago and are NOT booster OR are unvaccinated ? Stay home for 5 days. After that continue to wear a mask around others for 5 additional days. o If you cannot quarantine, you must wear a mask for 10 days. ? If you develop symptoms get a test and stay home. LILO BUTLER NP Referring Provider: No ref. provider found PCP: MYRON JC MD Cosigned by Myron Jc MD at 03/20/2022 12:28 PM CDT documented in this encounter Plan of Treatment Not on file documented as of this encounter Procedures Procedure Name Priority Date/Time Associated Diagnosis Comments CORONAVIRUS (COVID-19) ANTIGEN Routine 03/17/2022 COVID documented in this encounter Results * (ABNORMAL) CORONAVIRUS (COVID-19) ANTIGEN (03/17/2022) CORONAVIRUS ANTIGEN IA POSITIVE( Crit) NEGATIVE [facility] ANA (9401), JESUS Internal Control: VALID VALID [employer] ANA (9401), JESUS Specimen from nose (specimen) NASAL STRUCTURE / Unknown 03/17/2022 us Lilo Butler SERVICE MECHANIC MICROBIOLOGY - [facility] Edited Result - Final [facility] ANA (9401), JESUS [address] [facility] [address] [place] [address], documented in this encounter Visit Diagnoses Diagnosis COVID- Primary documented in this encounter Additional Health Concerns Infection Onset Date Last Indicated Resolved Time COVID-19 Rule Out 03/17/2022 03/17/2022 03/17/2022 4:08 PM CDT documented as of this encounter Care Teams Fresh Meat Grader Relationship Specialty Start Date End Date Myron Jc MD [address] [place] [address] PCP - General FAMILY PRACTICE 12/31/21 documented as of this encounter
--- OUTSIDE RECORDS SUMMARY | 2024-09-23 12:03 | XMS_ITS | Encounter Summary ---
Author Organization [facility] Address [address] [place] [address]. [place], [place] [id number] [place] [id number] Care Team Providers Care Crosstie Inspector Name Role Phone Myron Sandhu MD Primary Care Provider + Encounter Details Date Type Department Care Team (Latest Contact Info) Description 09/16/2022 Travel Social History Tobacco Use Types Packs/Day Years Used Date Smoking Tobacco: Never Smokeless Tobacco: Current Chew Alcohol Use Standard Drinks/Week Comments Yes 0 (1 standard drink = 0.6 oz pur e alcohol) PHQ-2 Answer Date Recorded Patient Health Questionnaire-2 Score 1 09/16/2022 Sex and Gender Information Value Date Recorded Sex Assigned at Not on file Legal Sex Male 3:35 PM CDT Gender Identity Male 01/02/2022 9:13 AM CDT Sexual Orientation Straight 01/02/2022 9: 13 AM CDT Travel History Travel Start Travel End [place] 08/14/2024 09/13/2024 COVID-19 Exposure Response Date Recorded In the last 10 days, have yo u been in contact with someone who was confirmed or suspected to have Coronavirus/COVID-19? No / Unsure 09/16/2022 8:02 AM TOMOGRAPHIC TECH documented as of this encounter Plan of Treatment Not on file documented as of this encounter Visit Diagnoses Not on filedocumented in this encounter Additional Health Concerns Assessment Noted Time PHQ-9 Depression Total Score: 9 09/16/20 22 8:27 AM TOMOGRAPHIC TECH documented as of this encounter Care Teams Crosstie Inspector Relationship Specialty Start Date End Date Myorn Sandhu MD [address] [facility] [address] [place] [address] PCP - General FAMILY PRACTICE 12/31/21 documented as of this encounter
--- OUTSIDE RECORDS SUMMARY | 2024-09-23 12:03 | XMS_ITS | Encounter Summary ---
Author Organization [facility] Address [address] [place] [address]. [place], [place] [id number] [place] [address] Care Team Providers Care Powdered Metal Supervisor Name Role Phone Myron Sandhu MD Primary Care Provider + Encounter Details Date Type Department Care Team (Latest Contact Info) Description 08/25/2022 Travel Social History Tobacco Use Types Packs/Day [...] CDT Travel History Travel Start Travel End [place] 08/14/2024 09/13/2024 COVID-19 Exposure Response Date Recorded In the last 10 days, have yo u been in contact with someone who was confirmed or suspected to have Coronavirus/COVID-19? No / Unsure 08/25/2022 4:31 PM SLIDE ATTENDANT documented as of this encounter Plan of Treatment Not on file documented as of this encounter Visit Diagnoses Not on filedocumented in this encounter Care Teams Powdered Metal Supervisor Relationship Specialty Start Date End Date Myron Sandhu MD [address] [facility] [address] [place] [address] PCP - General FAMILY PRACTICE 12/31/21 documented as of this encounter
--- OUTSIDE RECORDS SUMMARY | 2024-09-23 12:03 | XMS_ITS | Encounter Summary ---
Author Organization [facility] Address [facility] [place] [address] [place] [address] Care Team Providers Care Elevator Technician Name Role Phone Enrico Roe MD Primary Care Provider Rachel vailable Reason for Visit * Reason Comments Cough Encounter Details Date Type Department Care Team (Late st Contact Info) Description 09/07/2021 3:35 PM TOOL SHAPER SETUP OPERATOR - 09/07/2021 4:00 PM [facility] Emergency [facility] Emergency Room [address] [place] [address] Malissa Ldebetter FNP [address] [place] [address] Cough Discharge Disposition: Home or Self Care (Routine Discharge) Social History Tobacco Use Types Packs/Day Years [...] CDT Travel History Travel Start Travel End [place] 08/14/2024 09/13/2024 COVID-19 Exposure Response Date Recorded In the last month, have you been in contact with someone who was confirmed or suspected to have Coronavirus / COVID-19? No / Unsure 09/07/2021 3:18 PM TOOL SHAPER SETUP OPERATOR documented as of this encounter Last Filed Vital Signs Vital Sign Reading Time Taken Comments Blood Pressure 175/91 09/07/2021 3:40 PM TOOL SHAPER SETUP OPERATOR Pulse 97 09/07/2021 3:40 PM TOOL SHAPER SETUP OPERATOR Temperature 37.2 ??C (98.9 ??F) 09/07/2021 3:40 PM CS T Respiratory Rate 20 09/07/2021 3:40 PM TOOL SHAPER SETUP OPERATOR Oxygen Saturation 97% 09/07/2021 3:40 PM TOOL SHAPER SETUP OPERATOR Inhaled Oxygen Concentration - - Weight 104.3 kg (230 lb) 09/07/2021 3:40 PM TOOL SHAPER SETUP OPERATOR Height 175.3 cm (5' 9 ) 09/07/2021 3:40 PM TOOL SHAPER SETUP OPERATOR Body Mass Index 33.97 09/07/2021 3:40 PM TOOL SHAPER SETUP OPERATOR documented in this encounter Discharge Instructions * Discharge Instructions* SHANTA Vinson - 09/07/2021 3:54 PM TOOL SHAPER SETUP OPERATOR Mr. Field, we are going to start you on steroids today that should help open up your lungs. I am also going go ahead and start her on some antibiotics today as I do hear a few sounds of the lung that would make me suspicious for pneumonia. SHAPER SETUP OPERATOR SHAPER SETUP OPERATOR * Attachments The following attachments cannot be sent through Care Everywhere. * Pneumonia Discharge Instructions, Adult (Montenegrin) * Wheezing (Montenegrin) documented in this encounter Medications at Time of Discharge doxycycline hyclate 100 MG capsule Take 1 capsule (100 mg total) by mouth 2 (two) times daily for 10 days. 20 capsule 09/07/2021 09/17/2021 lisinopril 20 MG tablet Take 20 mg by mouth daily. 09/05/2020 11/19/2021 predniSONE 20 MG tablet Take 3 tablets daily for 3 days then take 2 tablets daily for 3 days then take 1 tablet daily for 3 days and 18 tablet 09/07/2021 01/05/2022 documented as of this encounter ED Notes * SHANTA Vinson - 09/07/2021 3:55 PM CST Chief Complaint Chief Complaint Patient presents with ??? Cough History of Present Illness 31-year-old male into clinic for complaint of cough for the past 4 days. Feels like it is progressively getting worse. Bringing up quite a bit of stuff. It gags him when he is of vomiting. He statesthat he has little bit of discomfort in the lung itself. Denies any history of asthma or allergies.Has been taking xdhr-[id number] cold medications and it does help a little bit. He does have a at home. He has been on paternity leave so he has not been around anybody for the past several days. He is not concerned with Covid at this point because he literally has not been anywhere. Medical History ALLERGIES: No Known Allergies MEDICATIONS: Prior to Admission medications Medication Sig Start Date End Date Taking? Authorizing Provider doxycycline hyclate 100 MG capsule Take 1 capsule (100 mg total) by mouth 2 (two) times daily for 10 days. 09/07/21 09/17/21 Yes SHANTA Vinson predniSONE 20 MG tablet Take 3 tablets daily for 3 days then take 2 tablets daily for 3 days then take 1 tablet daily for 3 days and 09/07/21 Yes SHANTA Vinson lisinopril 20 MG tablet Take 20 mg by mouth daily. 09/05/20 Doc Abstract PAST MEDICAL HISTORY: History reviewed. No pertinent past medical history. PAST SURGICAL HISTORY: Past Surgical History: Procedure Laterality Date ??? ANESTH,NOSE,SINUS SURGERY ??? FEMUR FRACTURE SURGERY Right FAMILY HISTORY: Family History Problem Relation Name Age of Onset ??? Hypertension Father ??? Hypertension Paternal Grandfather SOCIAL HISTORY: Social History Tobacco Use ??? Smoking status: Never Smoker ??? Smokeless tobacco: Current User Types: Chew Substance Use Topics ??? Alcohol use: Yes ??? Drug use: Never Review of Systems Review of Systems Constitutional: Positive for fatigue. Negative for chills, diaphoresis and fever. HENT: Positive for congestion, postnasal drip, rhinorrhea, sinus pressure, sinus pain and sore throat. Negative for ear discharge, ear pain, mouth sores and tinnitus. Eyes: Negative for discharge and redness. Respiratory: Positive for cough, shortness of breath and wheezing. Negative for chest tightness andstridor. Cardiovascular: Negative for chest pain. Gastrointestinal: Negative for diarrhea, nausea and vomiting. Endocrine: Negative. Genitourinary: Negative. Musculoskeletal: Negative for arthralgias and myalgias. Skin: Negative for color change and rash. Neurological: Negative. Psychiatric/Behavioral: Negative. Physical Exam Filed Vitals: 09/07/21 1540 BP: (!) 175/91 Pulse: 97 Resp: 20 Temp: 98.9 ??F (37.2 ??C) TempSrc: Skin SpO2: 97% Weight: 104.3 kg (230 lb) Height: 5' 9 (1.753 m) Physical Exam Vitals and nursing note reviewed. Constitutional: General: He is not in acute distress. Appearance: Normal appearance. He is well-developed and normal weight. He is not diaphoretic. HENT: Head: Normocephalic and atraumatic. Right Ear: Hearing and ear canal normal. A middle ear effusion is present. Tympanic membrane is injected. Left Ear: Hearing and ear canal normal. A middle ear effusion is present. Tympanic membrane is injected. Nose: Mucosal edema and rhinorrhea present. No nasal deformity or septal deviation. Right Turbinates: Swollen. Left Turbinates: Swollen. Right Sinus: No maxillary sinus tenderness or frontal sinus tenderness. Left Sinus: Maxillary sinus tenderness present. No frontal sinus tenderness. Mouth/Throat: Lips: Micro. Mouth: Mucous membranes are moist. No oral lesions. Pharynx: Uvula midline. Posterior oropharyngeal erythema present. No oropharyngeal exudate or uvulaswelling. Tonsils: No tonsillar exudate or tonsillar abscesses. Eyes: Conjunctiva/sclera: Conjunctivae normal. Pupils: Pupils are equal, round, and reactive to light. Cardiovascular: Rate and Rhythm: Normal rate and regular rhythm. Heart sounds: Normal heart sounds. Pulmonary: Effort: Pulmonary effort is normal. No tachypnea, accessory muscle usage, respiratory distress or retractions. Breath sounds: Examination of the right-lower field reveals decreased breath sounds, wheezing and rales. Examination of the left-lower field reveals decreased breath sounds. Decreased breath sounds, wheezing and rales present. Chest: Chest wall: No tenderness. Musculoskeletal: General: Normal range of motion. Cervical back: Normal range of motion and neck supple. Skin: General: Skin is warm and dry. Capillary Refill: Capillary refill takes less than 2 seconds. Neurological: Mental Status: He is alert and oriented to person, place, and time. Sensory: No sensory deficit. Psychiatric: Mood and Affect: Mood normal. Behavior: Behavior normal. Diagnostic Studies / Procedures ELECTROCARDIOGRAMS: No results found for this visit on 09/07/21. LABORATORY STUDIES: No results found for this visit on 09/07/21. IMAGING STUDIES No orders to display ED Course / Medical Decision Making MDM Number of Diagnoses or Management Options Lower respiratory infection: new and does not require workup Wheezing: new and does not require workup Diagnosis management comments: Patient presenting with upper respiratory symptoms for the past for 5 days. Patient is currently home on paternity leave. Has no known exposure to Covid. On exam noted to have some wheezing and crackles on the right lower lobe. Will go ahead and treat with antibioticsdue to symptoms and exam. Also will put him on some oral steroids to help with the cough and perceived shortness of breath. Risk of Complications, Morbidity, and/or Mortality Presenting problems: moderate Diagnostic procedures: low Management options: moderate General comments: Reviewed plan of care with patient to include diagnoses, Test results, medicationand plan of care. Pt verbalized understanding. All questions answered. Patient Progress Patient progress: stable Clinical Impression Wheezing (Primary) Lower respiratory infection Disposition: Discharge SHANTA Vinson 09/07/21 1601 Cosigned by Leda Yan MD at 09/07/2021 11:25 PM TOOL SHAPER SETUP OPERATOR SHAPER SETUP OPERATOR SHAPER SETUP OPERATOR * Shanti Smart RN - 09/07/2021 3:43 PM CST Arrives with 4 day history of cough and sinus congestion SHAPER SETUP OPERATOR documented in this encounter Plan of Treatment Not on file documented as of this encounter Visit Diagnoses Diagnosis Wheezing- Primary Lower respiratory infection Other diseases of respiratory system, not elsewhere classified documented in this encounter Care Teams Elevator Technician Relationship Specialty Start Date End Date Enrico Roe MD PCP - General FAMILY PRACTICE 2/26/21 4/5/22 documented as of this encounter
--- OUTSIDE RECORDS SUMMARY | 2024-09-23 12:03 | XMS_ITS | Encounter Summary ---
Author Organization [facility] Address [address] [place] [address]. [place], [place] [address] [place] [address] Care Team Providers Care Tack Puller Machine Name Role Phone Myron Sandhu MD Primary Care Provider + Encounter Details Date Type Department Care Team (Latest Contact Info) Description 09/16/2022 8:02 AM VOCATIONAL TRAINING INSTRUCTOR - 09/16/2022 11:59 PM VOCATIONAL TRAINING INSTRUCTOR Hospital Encounter [facility] [address] [place] [address] Myron Sandhu MD [address] [place] [address] Discharge Disposition: Home or Self Care (Routine [...] Coronavirus/COVID-19? No / Unsure 09/16/2022 8:02 AM VOCATIONAL TRAINING INSTRUCTOR documented as of this encounter Medications at Time of Discharge lisinopril (PRINIVIL) 20 MG tabletIndications: Essential hypertension Take 1 tablet (20 mg total) by mouth daily. 90 tablet 1 08/25/2022 3 mirtazapine (REMERON) 15 MG tabletIndications: Anxiety,Insomnia, unspecified type Take 1 tablet (15 mg total) by mouth nightly at bedtime. 30 tablet 09/16/2022 3 documented as of this encounter Plan of Treatment Not on file documented as of this encounter Procedures Procedure Name Priority Date/Time Associated Diagnosis Comments HC TESTOSTERONE TOTAL-90 Routine 09/16/2022 8:06 AM VOCATIONAL TRAINING INSTRUCTOR Testosterone deficiency in male COMPREHENSIVE METABOLIC PANEL Routine 09/16/2022 8:06 AM VOCATIONAL TRAINING INSTRUCTOR Essential hypertension LIPID PANEL Routine 09/16/2022 8:06 AM VOCATIONAL TRAINING INSTRUCTOR Essential hypertension documented in this encounter Results * TESTOSTERONE, FREE & TOTAL (09/16/2022 8:06 AM VOCATIONAL TRAINING INSTRUCTOR) TESTOSTERONE TOTAL 262 250 - 1,100 ng/dL 09/23/2022 1:18 PM VOCATIONAL TRAINING INSTRUCTOR [facility] Comment: For additional information, please refer to http://education.Care Thread/faq/ MfbxoDuapipqifabbVFBUOGSRK359 (This link is being provided for informational/ educational purposes only.) This test was developed and its analytical performance characteristics have been determined by [facility] [place], [place]. It has not been cleared or approved by the U.S. Food and Drug Administration. This assay has been validated pursuant to the CLIA regulations and is used for clinical purposes. TESTOSTERONE FREE 46.4 35.0 - 155.0 pg/mL 09/23/2022 1:18 PM VOCATIONAL TRAINING INSTRUCTOR [facility] Comment: This test was developed and its analytical performance characteristics have been determined by [facility] [place], [place]. It has not been cleared or approved by the U.S. Food and Drug Administration. This assay has been validated pursuant to the CLIA regulations and is used for clinical purposes. Test Performed by [facility], [employer] [facility], [address] [place], [place] Kana Noonan M.D., Ph.D., Director of Laboratories , CLIA [id number] 09/16/2022 8:06 AM VOCATIONAL TRAINING INSTRUCTOR Myron Sandhu MD LABORATORY Final Re sult [facility] [address] [place], [place] , [place] [phone] * (ABNORMAL) COMPREHENSIVE METABOLIC PANEL (09/16/2022 8:06 AM VOCATIONAL TRAINING INSTRUCTOR) GLUCOSE 104(H) 70 - 99 MG/DL 09/16/2022 8:34 AM [facility] BUN 10 7 - 18 MG/DL 09/16/2022 8:34 AM [facility] CREATININE S/P/B 0.90 0.7 - 1.3 MG/DL 09/16/2022 8:34 AM [facility] SODIUM S/P/B 137 136 - 145 MMOL/L 09/16/2022 8:34 AM [facility] POTASSIUM S/P/B 4.2 3.5 - 5.1 MMOL/L 09/16/2022 8:34 AM [facility] CHLORIDE S/P/B 99(L) 100 - 108 MMOL/L 09/16/2022 8:34 AM [facility] CO2 30.3 21 - 32 MMOL/L 09/16/2022 8:34 AM [facility] CALCIUM S/P/B 8.6 8.5 - 10.1 MG/DL 09/16/2022 8:34 AM [facility] BILIRUBIN TOTAL S/P/B 0.6 0.2 - 1.2 MG/DL 09/16/2022 8:34 AM [facility] Comment: THIS ASSAY IS NOT RECOMMENDED FOR PATIENTS UNDERGOING TREATMENT WITH ELTROMBOPAG DUE TO THE POTENTIAL FOR FALSELY ELEVATED RESULTS. TOTAL PROTEIN S/P/B 7.1 6.4 - 8.2 G/DL 09/16/2022 8:34 AM [facility] ALBUMIN S/P/B 3.6 3.4 - 5.0 G/DL 09/16/2022 8:34 AM [facility] AST 52(H) 15 - 37 U/L 09/16/2022 8:34 AM [facility] ALT 90(H) 16 - 60 U/L 09/16/2022 8:34 AM [facility] ALKALINE PHOSPHATASE S/P/B 51 50 - 136 U/L 09/16/2022 8:34 AM [facility] ANION GAP 7.7 5 - 15 MMOL/L 09/16/2022 8:34 AM [facility] BUN CREATININE RATIO 11.1 6 - 26 09/16/2022 8:34 AM [facility] A/G RATIO 1.0 1.0 - 2.0 RATIO 09/16/2022 8:34 AM [facility] GFR ESTIMATE >90 >90 ML/MIN/1.7 3 M2 09/16/2022 8:34 AM [facility] Comment: NOTE: eGFR is not calculated for patients <18 years of age. This is an estimated GFR calculation using the new CKD EPI creatinine equation without race and so does not require a correction factor for race. This estimated GFR should not be used for calculating drug doses. 09/16/2022 8:06 AM VOCATIONAL TRAINING INSTRUCTOR Myron Sandhu MD LABORATORY Final Re sult [facility] [address] [place] [address], * (ABNORMAL) LIPID PANEL (09/16/2022 8:06 AM [facility]) [facility] Signature CHOLESTEROL 199 <200 MG/DL 09/16/2022 8:34 AM [facility] TRIGLYCERIDES 194(H) <150 MG/DL 09/16/2022 8:34 AM [facility] HDL 58 >40.0 MG/DL 09/16/2022 8:34 AM [facility] LDL (CALCULATED) 102(H) <100 MG/DL 09/16/2022 8:34 AM [facility] NON HDL CHOLESTEROL 141(H) <130 MG/DL 09/16/2022 8:34 AM [facility] Comment: NOTE: WHEN THE TRIGLYCERIDES ARE >200 mg/dL, NON HDL C IS A SECONDARY TARGET OF THERAPY, WITH A GOAL 30 mg/dL HIGHER THAN THE IDENTIFIED LDL C GOAL. CHOL/HDL RATIO 3.4 0.0 - 4.5 09/16/2022 8:34 AM [facility] VLDL CALCULATION 39 5 - 55 MG/DL 09/16/2022 8:34 AM [facility] LIPID INTERPRETATION 09/16/2022 8:34 AM [facility] Comment: NIH CONCENSUS REPORT RECOMMENDATIONS: ?ADULT ?CHILD ??LOW RISK: ?CHOLESTEROL ? <200 ? <170 ?TRIGLYCERIDE ?<150 ?--- ?HDL ? >=60 ?--- ?LDL ? <100 ? <110 ??BORDERLINE: ?CHOLESTEROL ? 200-239 ?? 170-199 ?TRIGLYCERIDE ?150-199 ? --- ?HDL ?40-59 ?--- ?LDL ? 100-159 ?? 110-129 ??HIGH RISK: ?CHOLESTEROL ? >=240 ?>=200 ?TRIGLYCERIDE ?>=200 ? --- ?HDL ?<40 ?--- ?LDL ? >=160 ?>=130 09/16/2022 8:06 AM VOCATIONAL TRAINING INSTRUCTOR Myron Sandhu MD LABORATORY Final Re sult Performing Organization Address City/State/[facility] Co de Phone Number [facility] () [facility] [address] [place] [address], documented in this encounter Visit Diagnoses Diagnosis Essential hypertension Unspecified essential hypertension Testosterone deficiency in male documented in this encounter Additional Health Concerns Assessment Noted Time PHQ-9 Depression Total Score: 9 09/16/20 22 8:27 AM VOCATIONAL TRAINING INSTRUCTOR documented as of this encounter Care Teams Tack Puller Machine Relationship Specialty Start Date End Date Myron Sandhu MD [address] [place] [address] PCP - General FAMILY PRACTICE 12/31/21 documented as of this encounter
--- OUTSIDE RECORDS SUMMARY | 2024-09-23 12:03 | XMS_ITS | Encounter Summary ---
Author Organization [facility] Address [address] [place] [address]. [place], [place] [address] [place] [address] Care Team Providers Care Pack Changer Name Role Phone Myron Sandhu MD Primary Care Provider + Encounter Details Date Type Department Care Team (Latest Contact Info) Description 03/17/2022 Travel Social History Tobacco Use Types Packs/Day [...] CDT Travel History Travel Start Travel End [place] 08/14/2024 09/13/2024 COVID-19 Exposure Response Date Recorded In the last 10 days, have yo u been in contact with someone who was confirmed or suspected to have Coronavirus/COVID-19? Yes 03/17/2022 3:27 PM CDT documented as of this encounter Plan of Treatment Not on file documented as of this encounter Visit Diagnoses Not on filedocumented in this encounter Additional Health Concerns Infection Onset Date Last Indicated Resolved Time COVID-19 Rule Out 03/17/2022 03/17/2022 03/17/2022 4:08 PM CDT COVID-19 Confirmed 03/17/2022 03/17/2022 07/16/202 2 12:32 AM CDT documented as of this encounter Care Teams Pack Changer Relationship Specialty Start Date End Date Myron Sandhu MD [address] [facility] [address] [place] [phone] PCP - General FAMILY PRACTICE 12/31/21 documented as of this encounter
--- OUTSIDE RECORDS SUMMARY | 2024-09-23 12:03 | XMS_ITS | Encounter Summary ---
Author Organization [facility] Address [address] [place] [address]. [place], [place] [address] [place] [address] Care Team Providers Care Medical Education Coordinator Name Role Phone Myron Sandhu MD Primary Care Provider + Reason for Visit * Reason Comments Lab (SCAN) Encounter Details Date Type Department Care Team (Latest Contact Info) Description 07/15/2023 Scan [facility] Scanned, Doc Med Group Lab (SCAN) Social History Tobacco Use Types Packs/Day Years Used Date Smoking Tobacco: Never Smokeless Tobacco: Current Chew Comments:Chew tobaccao Alcohol Use Standard Drinks/Week Comments Yes 0 (1 standard drink = 0.6 oz pur e alcohol) PHQ-2 Answer Date Recorded Patient Health Questionnaire-2 Score 1 08/23/2023 Sex and Gender Information Value Date Recorded Sex Assigned at Not on file Legal Sex Male 3:35 PM CDT Gender Identity Male 01/02/2022 9:13 AM CDT Sexual Orientation Straight 01/02/2022 9: 13 AM CDT Travel History Travel Start Travel End [place] 08/14/2024 09/13/2024 documented as of this encounter Plan of Treatment Not on file documented as of this encounter Procedures Procedure Name Priority Date/Time Associated Diagnosis Comments OUTSIDE LAB (SCAN ORDER) 07/15/2023 OUTSIDE LAB (SCAN ORDER) 07/15/2023 documented in this encounter Results * OUTSIDE LAB (SCAN) (07/15/2023) 07/15/2023 us [facility] Scanned SCANNING Final Resu lt * OUTSIDE LAB (SCAN) (07/15/2023) 07/15/2023 us Doc [facility] Scanned SCANNING Final Resu lt documented in this encounter Visit Diagnoses Not on filedocumented in this encounter Additional Health Concerns Assessment Noted Time PHQ-9 Depression Total Score: 11 023 8:27 AM REEL HOOKER documented as of this encounter Care Teams Medical Education Coordinator Relationship Specialty Start Date End Date Myron Sandhu MD [address] [facility] [address] [place] [phone] PCP - General FAMILY PRACTICE 12/31/21 documented as of this encounter
--- OUTSIDE RECORDS SUMMARY | 2024-09-23 12:03 | XMS_ITS | Encounter Summary ---
Author Organization [facility] Address [facility] [place] [place] [address] [place] [address] Care Team Providers Care Pet Ambassador Name Role Phone Myron Sandhu MD Primary Care Provider + Reason for Visit * Reason Onset Date Comments Refill Request 12/31/2021 Encounter Details Date Type Department Care Team (Late st Contact Info) Description 12/31/2021 Telephone [facility] [address] [place] [address] Myron Sandhu MD [address] [place] [address] Refill Request Social History Tobacco Use Types Packs/Day Years [...] CDT Travel History Travel Start Travel End [place] 08/14/2024 09/13/2024 documented as of this encounter Progress Notes * Heather Gilbert RN - 12/31/2021 11:11 AM CDT 7 days sent as requested * Bianca Wang - 12/31/2021 10:51 AM CDT Medication Refill Task: Patient has appointment to establish with [facility] on 01/05/22, former tomi patient, just needs enough to get him through until appointment on 01/05/22 Name of the medication(s): Lisinopril Dose of the medication(s): 20mg tab 30 or 90 day supply: (N/A for Controlled Substances) 1 week supply Pharmacy Name: [facility] documented in this encounter Plan of Treatment Not on file documented as of this encounter Visit Diagnoses Diagnosis Essential hypertension Unspecified essential hypertension documented in this encounter Care Teams Pet Ambassador Relationship Specialty Start Date End Date Myron Sandhu MD [address] [phone] PCP - General FAMILY PRACTICE 12/31/21 documented as of this encounter
--- OUTSIDE RECORDS SUMMARY | 2024-09-23 12:03 | XMS_ITS | Encounter Summary ---
Author Organization [facility] Address [address] [place] [address]. [place], [place] [address] [place] [address] Care Team Providers Care Kieselguhr Regenerator Operator Name Role Phone Myron Sandhu MD Primary Care Provider + Reason for Referral * Consultation (Routine) - Closed Specialty Diagnoses / Procedures Referred By Reece griffin Referred To Contact UROLOGY Diagnoses Low testosterone Procedures OFFICE/OUTPT VISIT,NEW,LEVL III OFFICE/OUTPT VISIT,NEW,LEVL IV OFFICE/OUTPT VISIT,NEW,LEVL V OFFICE/OUTPT VISIT,EST,LEVL III OFFICE/OUTPT VISIT,EST,LEVL IV OFFICE/OUTPT VISIT,EST,LEVL V Myron Sandhu MD [address] [place] [address] Phone: tel: fax: [facility] [place] [address] Phone: tel: fax: Referral ID Status Reason Start Date Expiration Date V isits Requested Visits Authorized [id number] Closed Specialty Services 09/24/2022 10/25/2023 100 100 MAPPER Encounter Details Date Type Department Care Team (Late st Contact Info) Description 09/24/2022 Apsehart Message [facility] [address] [place] [address] Myron Sandhu MD [address] [place] [place] [address] results Social History Tobacco Use Types Packs/Day Years [...] CDT Travel History Travel Start Travel End [place] 08/14/2024 09/13/2024 COVID-19 Exposure Response Date Recorded In the last 10 days, have yo u been in contact with someone who was confirmed or suspected to have Coronavirus/COVID-19? No / Unsure 09/16/2022 8:02 AM TYPE MAPPER documented as of this encounter Plan of Treatment Scheduled Referrals Name Type Priority Associated Diagnoses Orde r Schedule Ambulatory referral to Urology (OTHER) Referral Routine Low testosterone Ordered: 09/24/2022 documented as of this encounter Visit Diagnoses Diagnosis Low testosterone- Primary Other testicular hypofunction documented in this encounter Additional Health Concerns Assessment Noted Time PHQ-9 Depression Total Score: 9 09/16/20 22 8:27 AM TYPE MAPPER documented as of this encounter Care Teams Kieselguhr Regenerator Operator Relationship Specialty Start Date End Date Myron Sandhu MD [address] [place] [place] [address] PCP - General FAMILY PRACTICE 12/31/21 documented as of this encounter
--- OUTSIDE RECORDS SUMMARY | 2024-09-23 12:03 | XMS_ITS | Encounter Summary ---
Author Organization [facility] Address [address] [place] [address]. [place] [address] [place] [address] Care Team Providers Care Manager Trading Name Role Phone Myron Sandhu MD Primary Care Provider + Reason for Visit * Reason Onset Date Comments Information 10/30/2022 Encounter Details Date Type Department Care Team (Late st Contact Info) Description 10/30/2022 Telephone [facility] [address] [place] [address] Myron Sandhu MD [address] [place] [address] Information Social History Tobacco Use Types Packs/Day Years Used Date Smoking Tobacco: Never Smokeless Tobacco: Current Chew Comments:Chew tobaccao Alcohol Use Standard Drinks/Week Comments Yes 0 (1 standard drink = 0.6 oz pur e alcohol) PHQ-2 Answer Date Recorded Patient Health Questionnaire-2 Score 3 10/05/2022 Sex and Gender Information Value Date Recorded Sex Assigned at Not on file Legal Sex Male 3:35 PM CDT Gender Identity Male 01/02/2022 9:13 AM CDT Sexual Orientation Straight 01/02/2022 9: 13 AM CDT Travel History Travel Start Travel End [place] 08/14/2024 09/13/2024 COVID-19 Exposure Response Date Recorded In the last 10 days, have yo u been in contact with someone who was confirmed or suspected to have Coronavirus/COVID-19? No / Unsure 10/05/2022 8:05 AM CLAY ARTIST documented as of this encounter Progress Notes * Heather Gilbert RN - 10/30/2022 2:29 PM CST done ARTIST * Meme Levin - 10/30/2022 2:21 PM CST Please fax labs to: Urology [facility] ARTIST documented in this encounter Plan of Treatment Not on file documented as of this encounter Visit Diagnoses Not on filedocumented in this encounter Additional Health Concerns Assessment Noted Time PHQ-9 Depression Total Score: 11 023 8:27 AM CLAY ARTIST documented as of this encounter Care Teams Manager Trading Relationship Specialty Start Date End Date Myron Sandhu MD [address] [facility] [address] [place] [phone] PCP - General FAMILY PRACTICE 12/31/21 documented as of this encounter
--- OUTSIDE RECORDS SUMMARY | 2024-09-23 12:03 | XMS_ITS | Encounter Summary ---
Author Organization [facility] Address [address] [place] [address]. [place], [place] [address] [place] [address] Care Team Providers Care Airline Managerial Supervisor Name Role Phone Myron Sandhu MD Primary Care Provider + Reason for Visit * Reason Comments Follow Up Discuss meds Anxiety Encounter Details Date Type Department Care Team (Late st Contact Info) Description 10/05/2022 8:20 AM CIRCUIT DESIGNER Office Visit [facility] [address] [place] [address] Myron Sandhu MD [address] [facility] [address] [place] [address] Follow Up (Discuss meds/); Anxiety Social History Tobacco Use Types Packs/Day Years Used Date Smoking Tobacco: Never Smokeless Tobacco: Current Chew Tobacco Cessation:Ready to Q uit: No; Counseling Given: Not Answered Comments:Chew tobaccao Alcohol Use Standard Drinks/Week Comments [...] CDT Travel History Travel Start Travel End [place] 08/14/2024 09/13/2024 COVID-19 Exposure Response Date Recorded In the last 10 days, have yo u been in contact with someone who was confirmed or suspected to have Coronavirus/COVID-19? No / Unsure 10/05/2022 8:05 AM CIRCUIT DESIGNER documented as of this encounter Last Filed Vital Signs Vital Sign Reading Time Taken Comments Blood Pressure 130/98 10/05/2022 8:15 AM CIRCUIT DESIGNER Pulse 82 10/05/2022 8:15 AM CIRCUIT DESIGNER Temperature 36.4 ??C (97.5 ??F) 10/05/2022 8:15 AM CS T Respiratory Rate 20 10/05/2022 8:15 AM CIRCUIT DESIGNER Oxygen Saturation 99% 10/05/2022 8:15 AM CIRCUIT DESIGNER Inhaled Oxygen Concentration - - Weight 104.7 kg (230 lb 12.8 oz) 10/05/2022 8:15 AM CIRCUIT DESIGNER Height 175.3 cm (5' 9 ) 10/05/2022 8:15 AM CIRCUIT DESIGNER Body Mass Index 34.08 10/05/2022 8:15 AM CIRCUIT DESIGNER documented in this encounter Patient Instructions * Patient Instructions* Myron Sandhu MD - 10/05/2022 8:20 AM CIRCUIT DESIGNER Add Lexapro in morning and continue Remeron at night. Continue medicine for blood pressure. Urologyreferral made for low testosterone. Recheck in a month. UIT DESIGNER UIT DESIGNER documented in this encounter Progress Notes * Myron Sandhu MD - 10/05/2022 8:20 AM CST Chief Complaint: Follow Up (Discuss meds/) and Anxiety HPI: Arron Field is a 32-year-old male here for follow-up on anxiety and blood pressure. He did not take his blood pressure medicine this morning. The REereon has helped with his sleep but stillhaving anxiety. His recent labs did show low testosterone and urology consult has been made. ROS: Review of Systems Constitutional: Negative for fever. Respiratory: Negative for cough. Cardiovascular: Negative for chest pain and palpitations. Gastrointestinal: Negative for abdominal pain. Neurological: Negative for dizziness and headaches. Psychiatric/Behavioral: Negative for suicidal ideas. The patient is nervous/anxious. Physical Exam Constitutional: General: He is not in acute distress. Cardiovascular: Rate and Rhythm: Normal rate and regular rhythm. Pulmonary: Breath sounds: Normal breath sounds. Abdominal: General: There is no distension. Palpations: Abdomen is soft. Musculoskeletal: Cervical back: Neck supple. Right lower leg: No edema. Left lower leg: No edema. Neurological: Mental Status: He is alert. Psychiatric: Mood and Affect: Affect normal. Mood is anxious. Speech: Speech normal. Behavior: Behavior is cooperative. Thought Content: Thought content normal. Current Outpatient Medications Medication Sig ??? escitalopram (LEXAPRO) 10 MG tablet Take 1 tablet (10 mg total) by mouth daily. ??? lisinopril (PRINIVIL) 20 MG tablet Take 1 tablet (20 mg total) by mouth daily. ??? mirtazapine (REMERON) 15 MG tablet Take 1 tablet (15 mg total) by mouth nightly at bedtime. No current facility-administered medications for this visit. Past Medical History: Diagnosis Date ??? Hypertension 2018 Past Surgical History: Procedure Laterality Date ??? ANESTH,NOSE,SINUS SURGERY ??? FEMUR FRACTURE SURGERY Right Social History Tobacco Use ??? Smoking status: Never ??? Smokeless tobacco: Current Types: Chew ??? Tobacco comments: Chew tobaccao Substance Use Topics ??? Alcohol use: Yes Family History Problem Relation Name Age of Onset ??? Hypertension Father Grant ??? Hypertension Paternal Grandfather Francesco ??? Stroke Paternal Grandfather Francesco Vitals: 10/05/22 0815 BP: (!) 130/98 BP Location: Left arm Patient Position: Sitting Cuff size: Adult Large Pulse: 82 Temp: 97.5 ??F (36.4 ??C) TempSrc: Temporal Weight: 104.7 kg (230 lb 12.8 oz) Height: 5' 9 (1.753 m) Diagnoses/Impression: Anxiety (primary encounter diagnosis) Low testosterone Essential hypertension Recommendations and Plan: Orders Placed This Encounter ??? escitalopram (LEXAPRO) 10 MG tablet Sig: Take 1 tablet (10 mg total) by mouth daily. Dispense: 30 tablet Refill: 0 Patient Instructions Add Lexapro in morning and continue Remeron at night. Continue medicine for blood pressure. Urologyreferral made for low testosterone. Recheck in a month. MYRON SANDHU MD Referring Provider: Self Referral PCP: MYRON SANDHU MD UIT DESIGNER documented in this encounter Plan of Treatment Not on file documented as of this encounter Visit Diagnoses Diagnosis Anxiety- Primary Anxiety state, unspecified Low testosterone Other testicular hypofunction Essential hypertension Unspecified essential hypertension documented in this encounter Additional Health Concerns Assessment Noted Time PHQ-9 Depression Total Score: 11 023 8:27 AM CIRCUIT DESIGNER documented as of this encounter Care Teams Airline Managerial Supervisor Relationship Specialty Start Date End Date Myron Sandhu MD [address] [facility] [address] [place] [phone] PCP - General FAMILY PRACTICE 12/31/21 documented as of this encounter
--- OUTSIDE RECORDS SUMMARY | 2024-09-23 12:03 | XMS_ITS | Encounter Summary ---
Author Organization [facility] Address Count includes the [facility]. [place], [place] [address] [place] [address] Care Team Providers Care Senior Cytogenetic Technologist Name Role Phone Francesco Verma MD Primary Care Provider Unav ailable Reason for Referral * Sleep Lab (Routine) - Closed Specialty Diagnoses / Procedures Referred By Reece griffin Referred To Contact [facility] Sleep Disorders Diagnoses Excessive daytime sleepiness TATIANA (obstructive sleep apnea) Snoring Procedures Diagnostic PSG (85[address], [id number]) Francesco Verma MD [facility] [address] [place] [address] Phone: tel: fax: Referral ID Status Reason Start Date Expiration Date Visits Re quested Visits Authorized [id number] Closed 06/11/2020 07/12/2021 1 1 Encounter Details Date Type Department Care Team (Late [facility]) Description 06/11/2020 Transcribe Orders [facility] [address] [place] [address] Francesco Verma MD Social History Tobacco Use Types Packs/Day Years Used Date Smoking Tobacco: Never Assessed Sex and Gender Information Value Date Recorded Sex Assigned at Not on file Legal Sex Male 3:35 PM CDT Gender Identity Male 01/02/2022 9:13 AM CDT Sexual Orientation Straight 01/02/2022 9: 13 AM CDT Travel History Travel Start Travel End [place] 08/14/2024 09/13/2024 COVID-19 Exposure Response Date Recorded In the last month, have you been in contact with someone who was confirmed or suspected to have Coronavirus / COVID-19? No / Unsure 07/18/2020 8:16 PM CDT documented as of this encounter Plan of Treatment Not on file documented as of this encounter Visit Diagnoses Diagnosis Excessive daytime sleepiness- Primary TATIANA (obstructive sleep apnea) Obstructive sleep apnea (adult) (pediatric) Snoring Other dyspnea and respiratory abnormality documented in this encounter Care Teams Senior Cytogenetic Technologist Relationship Specialty Start Date End Date Francesco Verma MD PCP - General FAMILY PRACTICE 07/08/20 11/06/20 documented as of this encounter
--- OUTSIDE RECORDS SUMMARY | 2024-09-23 12:03 | XMS_ITS | Encounter Summary ---
Author Organization [facility] Address [address] [place] [address]. [place], [place] [address] [place] [address] Care Team Providers Care Reliability Technician Name Role Phone Myron Sandhu MD Primary Care Provider + Reason for Visit * Reason Comments Follow Up Follow up on meds Encounter Details Date Type Department Care Team (Late st Contact Info) Description 08/25/2022 4:40 PM RESEARCH RECRUITER Office Visit [facility] [address] [place] [address] Myron Sandhu MD [address] [facility] [address] [place] [address] Follow Up (Follow up on meds) Social History Tobacco Use Types Packs/Day Years Used Date Smoking Tobacco: Never Smokeless Tobacco: Current Chew Tobacco Cessation:Ready to Q uit: Not Asked; Counseling Given: Not Answered Alcohol Use Standard Drinks/Week Comments Yes 0 [...] Coronavirus/COVID-19? No / Unsure 08/25/2022 4:31 PM RESEARCH RECRUITER documented as of this encounter Last Filed Vital Signs Vital Sign Reading Time Taken Comments Blood Pressure 144/85 08/25/2022 5:04 PM RESEARCH RECRUITER Pulse 106 08/25/2022 5:04 PM RESEARCH RECRUITER Temperature 36.8 ??C (98.2 ??F) 08/25/2022 5:04 PM CS T Respiratory Rate 18 08/25/2022 5:04 PM RESEARCH RECRUITER Oxygen Saturation 100% 08/25/2022 5:04 PM RESEARCH RECRUITER Inhaled Oxygen Concentration - - Weight 104.8 kg (231 lb) 08/25/2022 5:04 PM RESEARCH RECRUITER Height 175.3 cm (5' 9 ) 08/25/2022 5:04 PM RESEARCH RECRUITER Body Mass Index 34.11 08/25/2022 5:04 PM RESEARCH RECRUITER documented in this encounter Patient Instructions * Patient Instructions* Myron Sandhu MD - 08/25/2022 4:40 PM RESEARCH RECRUITER Get labs done and follow-up based on those results. Continue current medicine for blood pressure ARCH RECRUITER documented in this encounter Progress Notes * Myron Sandhu MD - 08/25/2022 4:40 PM CST Chief Complaint: Follow Up (Follow up on meds) HPI: Arron Field is a 32-year-old male here for follow up on Hypertension. Doing well on current medication without side effects. No acute illness or other chronic medical problems. ROS: Review of Systems Constitutional: Negative for fever. Respiratory: Negative for cough. Cardiovascular: Negative for chest pain and palpitations. Gastrointestinal: Negative for abdominal pain. Neurological: Negative for dizziness and headaches. Physical Exam Constitutional: General: He is not in acute distress. Eyes: Conjunctiva/sclera: Conjunctivae normal. Cardiovascular: Rate and Rhythm: Normal rate and regular rhythm. Pulmonary: Breath sounds: Normal breath sounds. Abdominal: General: There is no distension. Palpations: Abdomen is soft. Musculoskeletal: Cervical back: Neck supple. Right lower leg: No edema. Left lower leg: No edema. Neurological: Mental Status: He is alert. Current Outpatient Medications Medication Sig ??? lisinopril (PRINIVIL) 20 MG tablet Take 1 tablet (20 mg total) by mouth daily. No current facility-administered medications for this visit. History reviewed. No pertinent past medical history. Past Surgical History: Procedure Laterality Date ??? ANESTH,NOSE,SINUS SURGERY ??? FEMUR FRACTURE SURGERY Right Social History Tobacco Use ??? Smoking status: Never ??? Smokeless tobacco: Current Types: Chew Substance Use Topics ??? Alcohol use: Yes Family History Problem Relation Name Age of Onset ??? Hypertension Father ??? Hypertension Paternal Grandfather ??? Stroke Paternal Grandfather Vitals: 08/25/22 1704 BP: (!) 144/85 BP Location: Right arm Patient Position: Sitting Cuff size: Adult Large Pulse: 106 Temp: 98.2 ??F (36.8 ??C) TempSrc: Temporal Weight: 104.8 kg (231 lb) Height: 5' 9 (1.753 m) Diagnoses/Impression: Essential hypertension Recommendations and Plan: Orders Placed This Encounter ??? lisinopril (PRINIVIL) 20 MG tablet Sig: Take 1 tablet (20 mg total) by mouth daily. Dispense: 90 tablet Refill: 1 Patient Instructions Get labs done and follow-up based on those results. Continue current medicine for blood pressure MYRON SANDHU MD Referring Provider: Self Referral PCP: MYRON SANDHU MD ARCH RECRUITER documented in this encounter Plan of Treatment Not on file documented as of this encounter Visit Diagnoses Diagnosis Essential hypertension Unspecified essential hypertension documented in this encounter Care Teams Reliability Technician Relationship Specialty Start Date End Date Myron Sandhu MD [address] [facility] [address] [place] [address] PCP - General FAMILY PRACTICE 12/31/21 documented as of this encounter
--- OUTSIDE RECORDS SUMMARY | 2024-09-23 12:03 | XMS_ITS | Encounter Summary ---
Author Organization [facility] Address [address] [place] [address]. [place], [place] [address] [place], [place] [id number] Care Team Providers Care Rag Cutting Machine Feeder Name Role Phone Enrico Roe MD Primary Care Provider Rachel vailable Encounter Details Date Type Department Care Team (Latest Contact Info) Description 08/27/2021 Travel Social History Tobacco Use Types Packs/Day [...] have Coronavirus / COVID-19? No / Unsure 08/27/2021 10:16 AM OVERHEAD CLEANER MAINTAINER documented as of this encounter Plan of Treatment Not on file documented as of this encounter Visit Diagnoses Not on filedocumented in this encounter Care Teams Rag Cutting Machine Feeder Relationship Specialty Start Date End Date Enrico Roe MD PCP - General FAMILY PRACTICE 11/22/20 12/30/21 documented as of this encounter
--- OUTSIDE RECORDS SUMMARY | 2024-09-23 12:03 | XMS_ITS | Encounter Summary ---
Author Organization [facility] Address [address] [place] [address]. [place], [place] [address] [place] [address] Care Team Providers Care Scroll Shear Operator Name Role Phone Myron Jc MD Primary Care Provider + Reason for Visit * Reason Comments Arthritis Flare up in right bi g toe Encounter Details Date Type Department Care Team (Late st Contact Info) Description 09/13/2024 9:40 AM SENIOR QA ANALYST Office Visit [facility] [address] [place] [phone] Myron Jc MD [address] [facility] [address] [place] [address] Arthritis (/Flare up in right big toe) Social History Tobacco Use Types Packs/Day Years [...] Travel History Travel Start Travel End [place] 08/14/2024 09/13/2024 documented as of this encounter Last Filed Vital Signs Vital Sign Reading Time Taken Comments Blood Pressure 152/84 09/13/2024 9:31 AM SENIOR QA ANALYST Pulse 101 09/13/2024 9:31 AM SENIOR QA ANALYST Temperature 36.3 ??C (97.4 ??F) 09/13/2024 9:31 AM CS T Respiratory Rate 20 09/13/2024 9:31 AM SENIOR QA ANALYST Oxygen Saturation 99% 09/13/2024 9:31 AM SENIOR QA ANALYST Inhaled Oxygen Concentration - - Weight 107.2 kg (236 lb 6.4 oz) 09/13/2024 9:31 AM SENIOR QA ANALYST Height 175.3 cm (5' 9 ) 09/13/2024 9:31 AM SENIOR QA ANALYST Body Mass Index 34.91 09/13/2024 9:31 AM SENIOR QA ANALYST documented in this encounter Patient Instructions * Patient Instructions* Myron Jc MD - 09/13/2024 9:40 AM SENIOR QA ANALYST Short course of prednisone and call back if does not resolve. If recurrent problem would check uricacid. OR QA ANALYST documented in this encounter Progress Notes * Myron Jc MD - 09/13/2024 9:40 AM CST Chief Complaint: Arthritis (/Flare up in right big toe) HPI: Arron Field is a 34-year-old male here for complaints of right great toe pain the past three days. No injury. Gout once before several years ago. ROS: Review of Systems Constitutional: Negative for fever. Respiratory: Negative for cough. Cardiovascular: Negative for chest pain. Gastrointestinal: Negative for abdominal pain. Physical Exam Constitutional: General: He is not in acute distress. Cardiovascular: Rate and Rhythm: Regular rhythm. Pulmonary: Breath sounds: Normal breath sounds. Musculoskeletal: Cervical back: Neck supple. Comments: Mild swelling and moderate tenderness to base of right great toe. Neurological: Mental Status: He is alert. Current Outpatient Medications Medication Sig ??? lisinopril (PRINIVIL) 20 MG tablet TAKE 1 TABLET BY MOUTH EVERY DAY ??? predniSONE (DELTASONE) 20 MG tablet Take 1 tablet (20 mg total) by mouth 2 (two) times daily for 7 days. No current facility-administered medications for this visit. Past Medical History: Diagnosis Date ??? Hypertension 2018 Past Surgical History: Procedure Laterality Date ??? ANESTH,NOSE,SINUS SURGERY ??? FEMUR FRACTURE SURGERY Right Social History Tobacco Use ??? Smoking status: Never ??? Smokeless tobacco: Current Types: Chew ??? Tobacco comments: Zyn pouches Substance Use Topics ??? Alcohol use: Yes Family History Problem Relation Name Age of Onset ??? Hypertension Father Grant ??? Dementia Paternal Grandmother ??? Hypertension Paternal Grandfather Francesco ??? 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 predniSONE (DELTASONE) 20 MG tablet Sig: Take 1 tablet (20 mg total) by mouth 2 (two) times daily for 7 days. Dispense: 14 tablet Refill: 0 Patient Instructions Short course of prednisone and call back if does not resolve. If recurrent problem would check uricacid. 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
--- OUTSIDE RECORDS SUMMARY | 2024-09-23 12:03 | XMS_ITS | Encounter Summary ---
Author Organization [facility] [place] Address [address] [place] [address]. [place], [place] [address] [place] [address] Care Team Providers Care Manager Competitive Intelligence Name Role Phone Myron Sandhu MD Primary Care Provider + Encounter Details Date Type Department Care Team (Latest Contact Info) Description 01/02/2022 Travel Social History Tobacco Use Types Packs/Day [...] CDT Travel History Travel Start Travel End [place] 08/14/2024 09/13/2024 COVID-19 Exposure Response Date Recorded In the last 10 days, have yo u been in contact with someone who was confirmed or suspected to have Coronavirus/COVID-19? No / Unsure 01/02/2022 9:11 AM CDT documented as of this encounter Plan of Treatment Not on file documented as of this encounter Visit Diagnoses Not on filedocumented in this encounter Care Teams Manager Competitive Intelligence Relationship Specialty Start Date End Date Myron Sandhu MD [address] [facility] [address] [place] [phone] PCP - General FAMILY PRACTICE 12/31/21 documented as of this encounter
--- OUTSIDE RECORDS SUMMARY | 2024-09-23 12:03 | XMS_ITS | Encounter Summary ---
Author Organization [facility] Address [address] [place] [address]. [place], [place] [id number] [place] [address] Care Team Providers Care Accounts Payable Associate Name Role Phone Myron Sandhu MD Primary Care Provider + Encounter Details Date Type Department Care Team (Latest Contact Info) Description 08/23/2023 Travel Social History Tobacco Use Types Packs/Day [...] CDT Travel History Travel Start Travel End [place] 08/14/2024 09/13/2024 documented as of this encounter Plan of Treatment Not on file documented as of this encounter Visit Diagnoses Not on filedocumented in this encounter Additional Health Concerns Assessment Noted Time PHQ-9 Depression Total Score: 11 023 8:27 AM FILM SPLICER documented as of this encounter Care Teams Accounts Payable Associate Relationship Specialty Start Date End Date Myron Sandhu MD [address] [facility] [address] [place] [phone] PCP - General FAMILY PRACTICE 12/31/21 documented as of this encounter
--- OUTSIDE RECORDS SUMMARY | 2024-09-23 12:03 | XMS_ITS | Encounter Summary ---
Author Organization [facility] Address [address] [place] [address]. [place] [address] Care Team Providers Care Pluck Trimmer Name Role Phone Francesco Verma MD Primary Care Provider Unav ailable Reason for Referral * Sleep Lab (Routine) - Closed Specialty Diagnoses / Procedures Referred By Reece griffin Referred To Contact [facility] Sleep Disorders Diagnoses Excessive daytime sleepiness TATIANA (obstructive sleep apnea) Snoring Procedures Diagnostic PSG ([id number]) Francesco Verma MD [facility] [address] [place] [address] Phone: tel: fax: Referral ID Status Reason Start Date Expiration Date Visits Re quested Visits Authorized [id number] Closed 06/11/2020 07/12/2021 1 1 Reason for Visit * Reason Comments Excessive Sleepiness Daytime Snoring * Sleep Lab (Routine) - Closed Specialty Diagnoses / Procedures Referred By Reece griffin Referred To Contact [facility] Sleep Disorders Diagnoses Excessive daytime sleepiness TATIANA (obstructive sleep apnea) Snoring Procedures Diagnostic PSG ([id number], [id number]) Francesco Verma MD [facility] [address] [place] [address] Phone: tel: fax: Referral ID Status Reason Start Date Expiration Date Visits Re quested Visits Authorized [id number] Closed 06/11/2020 07/12/2021 1 1 Encounter Details Date Type Department Care Team (Latest Contact Info) Description 07/18/2020 8:18 PM CDT - 07/18/2020 11:59 PM CDT Hospital Encounter [facility] [address] [place] [address] Francesco Verma MD Excessive Sleepiness Daytime; Snoring Discharge Disposition: Home or Self Care (Routine [...] Procedure Name Priority Date/Time Associated Diagnosis Comments POLYSOMNOGRAPHY 4 OR MORE PARAMETERS Routine 07/18/2020 8:18 PM CDT Excessive daytime sleepiness TATIANA (obstructive sleep apnea) Snoring documented in this encounter Visit Diagnoses Diagnosis Excessive daytime sleepiness TATIANA (obstructive sleep apnea) Obstructive sleep apnea (adult) (pediatric) Snoring Other dyspnea and respiratory abnormality documented in this encounter Care Teams Pluck Trimmer Relationship Specialty Start Date End Date Francesco Verma MD PCP - General FAMILY PRACTICE 07/08/20 11/06/20 documented as of this encounter
--- OUTSIDE RECORDS SUMMARY | 2024-09-23 12:03 | XMS_ITS | Encounter Summary ---
Author Organization [facility] Address [address] [place] [address]. [place], [place] [address] [place] [address] Care Team Providers Care Examination Supervisor Name Role Phone Myron Sandhu MD Primary Care Provider + Encounter Details Date Type Department Care Team (Latest Contact Info) Description 10/05/2022 Travel Social History Tobacco Use Types Packs/Day [...] CDT Travel History Travel Start Travel End [place] 08/14/2024 09/13/2024 COVID-19 Exposure Response Date Recorded In the last 10 days, have yo u been in contact with someone who was confirmed or suspected to have Coronavirus/COVID-19? No / Unsure 10/05/2022 8:05 AM MEDICAL PHYSICIST documented as of this encounter Plan of Treatment Not on file documented as of this encounter Visit Diagnoses Not on filedocumented in this encounter Additional Health Concerns Assessment Noted Time PHQ-9 Depression Total Score: 11 023 8:27 AM MEDICAL PHYSICIST documented as of this encounter Care Teams Examination Supervisor Relationship Specialty Start Date End Date Myron Sandhu MD [address] [phone] PCP - General FAMILY PRACTICE 12/31/21 documented as of this encounter
--- OUTSIDE RECORDS SUMMARY | 2024-09-23 12:03 | XMS_ITS | Encounter Summary ---
Author Organization [facility] Address [address] [place] [address]. [place], [place] [id number] [place], [place] [phone] Care Team Providers Care Professor Of Environmental Studies Name Role Phone Myrno Sandhu MD Primary Care Provider + Encounter Details Date Type Department Care Team (Latest Contact Info) Description 11/02/2022 Scan [facility] Scanned, Doc Med Group Social History Tobacco Use Types Packs/Day Years [...] CDT Travel History Travel Start Travel End [place] 08/14/2024 09/13/2024 COVID-19 Exposure Response Date Recorded In the last 10 days, have yo u been in contact with someone who was confirmed or suspected to have Coronavirus/COVID-19? No / Unsure 10/05/2022 8:05 AM DYNAMOMETER REPAIRER documented as of this encounter Plan of Treatment Not on file documented as of this encounter Visit Diagnoses Not on filedocumented in this encounter Additional Health Concerns Assessment Noted Time PHQ-9 Depression Total Score: 11 023 8:27 AM DYNAMOMETER REPAIRER documented as of this encounter Care Teams Professor Of Environmental Studies Relationship Specialty Start Date End Date Myron Sandhu MD [address] [place] [address] PCP - General FAMILY PRACTICE 12/31/21 documented as of this encounter
--- OUTSIDE RECORDS SUMMARY | 2024-09-23 12:03 | XMS_ITS | Encounter Summary ---
Author Organization [facility] Address [address] [place] [address]. [place], [place] [phone] [place] [address] Care Team Providers Care Audio Experience Expert Name Role Phone Myron Jc MD Primary Care Provider + Reason for Visit * Reason Comments Physical Annual Encounter Details Date Type Department Care Team (Late st Contact Info) Description 08/23/2023 10:00 AM BUDGET REPORT CLERK Office Visit [facility] [address] [place] [address] Myron Jc MD [address] [place] [address] [place] [address] Physical (Annual/) Social History Tobacco Use Types Packs/Day Years Used Date Smoking Tobacco: Never Smokeless Tobacco: Current Chew Tobacco Cessation:Ready to Q uit: Yes; Counseling Given: Yes Comments:Chew tobaccao Alcohol Use Standard Drinks/Week Comments [...] CDT Travel History Travel Start Travel End [place] 08/14/2024 09/13/2024 documented as of this encounter Last Filed Vital Signs Vital Sign Reading Time Taken Comments Blood Pressure 140/74 08/23/2023 9:36 AM BUDGET REPORT CLERK Pulse 92 08/23/2023 9:36 AM BUDGET REPORT CLERK Temperature 36.6 ??C (97.9 ??F) 08/23/2023 9:36 AM CS T Respiratory Rate 20 08/23/2023 9:36 AM BUDGET REPORT CLERK Oxygen Saturation 100% 08/23/2023 9:36 AM BUDGET REPORT CLERK Inhaled Oxygen Concentration - - Weight 108 kg (238 lb 3.2 oz) 08/23/2023 9:36 AM BUDGET REPORT CLERK Height 175.3 cm (5' 9 ) 08/23/2023 9:36 AM BUDGET REPORT CLERK Body Mass Index 35.18 08/23/2023 9:36 AM BUDGET REPORT CLERK documented in this encounter Progress Notes * Myron Jc MD - 08/23/2023 10:00 AM CST Annual Preventive Visit Reason for Visit: Arron is an 33-year-old male here for Physical (Annual/) Patient Care Team: Myron Jc MD as PCP - General (FAMILY PRACTICE) History of Present Illness: Arron Field is a 33-year-old male here for annual exam. He is on Lisinopril for blood pressure. No other medications. He brings in labs done last month. Lipids/triglycerides mildly elevatedbut other labs all good. Past medical, social, surgical and family history reviewed. No acute illness. ROS Review of Systems Constitutional: Negative for fever. HENT: Negative for sore throat. Respiratory: Negative for cough. Cardiovascular: Negative for chest pain and palpitations. Gastrointestinal: Negative for abdominal pain, constipation and diarrhea. Genitourinary: Negative for difficulty urinating. Musculoskeletal: Negative for arthralgias. Neurological: Negative for headaches. Psychiatric/Behavioral: Negative for depression. Medications: Current Outpatient Medications Medication Sig Dispense Refill ??? lisinopril (PRINIVIL) 20 MG tablet TAKE 1 TABLET BY MOUTH EVERY DAY 90 tablet 2 No current facility-administered medications for this visit. PHQ2/9 Score Patient Health Questionnaire-2 Score: 1 Health Maintenance Topic Date Due ??? COVID-19 Vaccine (1) Never done ??? Annual Physical Never done ??? Hepatitis C Never done ??? Influenza Adult (1) Never done ??? DTaP, Tdap and Td Vaccines (10 - Td or Tdap) 08/27/2031 ??? HPV Vaccines Aged Out ??? Meningococcal Vaccine Aged Out ??? Pneumococcal Vaccine: Pediatrics (0 to 5 Years) and At-Risk Patients (6 to 64 Years) Aged Out ??? RSV Immunizations Under 20 Months Aged Out History Past Medical History: Diagnosis Date ??? Hypertension 2018 Past Surgical History: Procedure Laterality Date ??? ANESTH,NOSE,SINUS SURGERY ??? FEMUR FRACTURE SURGERY Right Family History Problem Relation Name Age of Onset ??? Hypertension Father Grant ??? Dementia Paternal Grandmother ??? Hypertension Paternal Grandfather Francesco ??? Stroke Paternal Grandfather Francesco Social History Socioeconomic History ??? Marital status: Social History Tobacco Use ??? Smoking status: Never ??? Smokeless tobacco: Current Types: Chew ??? Tobacco comments: Chew tobaccao Substance Use Topics ??? Alcohol use: Yes Exam Physical Exam Vitals and nursing note reviewed. Constitutional: General: He is not in acute distress. HENT: Right Ear: External ear normal. Left Ear: External ear normal. Mouth/Throat: Oropharynx is clear. Eyes: Pupils: Pupils are equal, round, and reactive to light. Cardiovascular: Rate and Rhythm: Normal rate and regular rhythm. Pulses: Normal pulses. Pulmonary: Breath sounds: Normal breath sounds. Abdominal: General: Bowel sounds are normal. Palpations: Abdomen is soft. Tenderness: There is no abdominal tenderness. Musculoskeletal: General: Normal range of motion. Cervical back: Neck supple. Right lower leg: No edema. Left lower leg: No edema. Lymphadenopathy: Cervical: No cervical adenopathy. Skin: Findings: No lesion. Neurological: General: No focal deficit present. Mental Status: He is alert. Cranial Nerves: No cranial nerve deficit. Psychiatric: Mood and Affect: Mood normal. Filed Vitals: 08/23/23 0936 BP: (!) 140/74 Pulse: 92 Resp: 20 Temp: 97.9 ??F (36.6 ??C) TempSrc: Temporal SpO2: 100% Weight: 108 kg (238 lb 3.2 oz) Height: 1.753 m (5' 9 ) Diagnoses/Impression 1. Wellness examination Recommendations and Plan: Anticipatory guidance: Recent labs reviewed. He will take fish oil and follow low fat diet and recheck lipid panel in 3-4 months. He declines influenza and covid vaccines and is up to date on tdap. He has never smoked. Would medically benefit from weight loss and encouraged in healthy diet and active lifestyle. MYRON JC MD ET REPORT CLERK documented in this encounter Plan of Treatment Not on file documented as of this encounter Visit Diagnoses Diagnosis Wellness examination- Primary documented in this encounter Additional Health Concerns Assessment Noted Time PHQ-9 Depression Total Score: 023 8:27 AM BUDGET REPORT CLERK documented as of this encounter Care Teams Audio Experience Expert Relationship Specialty Start Date End Date Myron Jc MD [address] [phone] PCP - General FAMILY PRACTICE 12/31/21 documented as of this encounter
--- OUTSIDE RECORDS SUMMARY | 2024-09-23 12:03 | XMS_ITS | Encounter Summary ---
Author Organization [facility] Address [address] [place] [address]. [place], [place] [phone] [place] [address] Care Team Providers Care Insurance Account Executive Name Role Phone Myron Sandhu MD Primary Care Provider + Encounter Details Date Type Department Care Team (Latest Contact Info) Description 01/05/2022 Travel Social History Tobacco Use Types Packs/Day Years Used Date Smoking Tobacco: Never Smokeless Tobacco: Current Chew Alcohol Use Standard Drinks/Week Comments Yes 0 (1 standard drink = 0.6 oz pur e alcohol) PHQ-2 Answer Date Recorded PHQ-2 Score - If the patient scores above 3, please move on to questions 3-9 0 01/05/2022 Sex and Gender Information Value Date Recorded Sex Assigned at Not on file Legal Sex Male 3:35 PM CDT Gender Identity Male 01/02/2022 9:13 AM CDT Sexual Orientation Straight 01/02/2022 9: 13 AM CDT Travel History Travel Start Travel End [place] 08/14/2024 09/13/2024 COVID-19 Exposure Response Date Recorded In the last 10 days, have yo u been in contact with someone who was confirmed or suspected to have Coronavirus/COVID-19? No / Unsure 01/05/2022 1:14 PM CDT documented as of this encounter Plan of Treatment Not on file documented as of this encounter Visit Diagnoses Not on filedocumented in this encounter Care Teams Insurance Account Executive Relationship Specialty Start Date End Date Myron Sandhu MD [address] [facility] [address] [place] [phone] PCP - General FAMILY PRACTICE 12/31/21 documented as of this encounter
--- OUTSIDE RECORDS SUMMARY | 2024-09-23 12:03 | XMS_ITS | Encounter Summary ---
Author Organization [facility] Address [address] [place] [address]. [place], [place] [address] [place] [address] Care Team Providers Care Housesmith Name Role Phone Francesco Verma MD Primary Care Provider Unav ailable Encounter Details Date Type Department Care Team (Latest Contact Info) Description 07/18/2020 Travel Social History Tobacco Use Types Packs/Day [...] on filedocumented in this encounter Care Teams Housesmith Relationship Specialty Start Date End Date Francesco Verma MD PCP - General FAMILY PRACTICE 07/08/20 11/06/20 documented as of this encounter
--- OUTSIDE RECORDS SUMMARY | 2024-09-23 12:03 | XMS_ITS | Encounter Summary ---
Author Organization [facility] Address [address] [place] [address]. [place], [place] [phone] [place] [address] Care Team Providers Care County Agent Name Role Phone Myron Sandhu MD Primary Care Provider + Reason for Visit * Reason Comments Hypertension Follow Up est care Encounter Details Date Type Department Care Team (Late st Contact Info) Description 01/05/2022 1:40 PM CDT Office Visit [facility] [address] [place] [address] Myron Sandhu MD [address] [place] [address] [place] [address] Hypertension Follow Up (est care) Social History Tobacco Use Types Packs/Day Years [...] Sign Reading Time Taken Comments Blood Pressure 108/84 01/05/2022 1:36 PM CDT Pulse 85 01/05/2022 1:27 PM CDT Temperature 36.7 ??C (98.1 ??F) 01/05/2022 1:27 PM CD T Respiratory Rate 20 01/05/2022 1:27 PM CDT Oxygen Saturation 98% 01/05/2022 1:27 PM CDT Inhaled Oxygen Concentration - - Weight 104.6 kg (230 lb 9.6 oz) 01/05/2022 1:27 PM CDT Height 175.3 cm (5' 9 ) 01/05/2022 1:27 PM CDT Body Mass Index 34.05 01/05/2022 1:27 PM CDT documented in this encounter Patient Instructions * Patient Instructions* Myron Sandhu MD - 01/05/2022 1:40 PM CDT Get lab work done and continue current medication. documented in this encounter Progress Notes * Myron Sandhu MD - 01/05/2022 1:40 PM CDT Chief Complaint: Hypertension Follow Up ([facility]) HPI: Arron Field is a 31-year-old male here for follow-up on hypertension with no problems with current medication. No acute illness. Has lab orders at regristration and will add lipid panel to those. ROS: Review of Systems Constitutional: Negative for fever. Respiratory: Negative for cough and shortness of breath. Cardiovascular: Negative for chest pain and palpitations. [...] No edema. Lymphadenopathy: Cervical: No cervical adenopathy. Neurological: Mental Status: He is alert. Psychiatric: Mood and Affect: Mood normal. Current Outpatient Medications Medication Sig ??? lisinopril 20 MG tablet Take 1 tablet (20 [...] Paternal Grandfather ??? Stroke Paternal Grandfather Vitals: 01/05/22 1327 01/05/22 1336 BP: (!) 136/94 108/84 BP Location: Left arm Left arm Patient Position: Sitting Sitting Cuff size: Adult Large Adult Large Pulse: 85 Temp: 98.1 ??F (36.7 ??C) TempSrc: Temporal Weight: 104.6 kg (230 lb 9.6 oz) Height: 5' 9 (1.753 m) Diagnoses/Impression: Essential hypertension (primary encounter diagnosis) Recommendations and Plan: Orders Placed This Encounter ??? LIPID PANEL Standing Status: Future Standing Expiration Date: 01/05/2023 Order Specific Question: Release to patient Answer: System release ??? lisinopril 20 MG tablet Sig: Take 1 tablet (20 mg total) by mouth daily. Dispense: 90 tablet Refill: 1 Patient Instructions Get lab work done and continue current medication. MYRON SANDHU MD Referring Provider: Self Referral PCP: MYRON SANDHU MD documented in this encounter Plan of Treatment Not on file documented as of this encounter Visit Diagnoses Diagnosis Essential hypertension- Primary Unspecified essential hypertension documented in this encounter Care Teams County Agent Relationship Specialty Start Date End Date Myron Sandhu MD [address] [phone] PCP - General FAMILY PRACTICE 4/6/22 documented as of this encounter
--- OUTSIDE RECORDS SUMMARY | 2024-09-23 12:03 | XMS_ITS | Encounter Summary ---
Author Organization [facility] Address [address] [place] [address]. [place], [place] [address] [place], [place] [id number] Care Team Providers Care Sheet Cutter Name Role Phone Enrico Roe MD Primary Care Provider Rachel vailable Encounter Details Date Type Department Care Team (Latest Contact Info) Description 11/22/2020 Travel Social History Tobacco Use Types Packs/Day [...] COVID-19? No / Unsure 11/22/2020 10:11 AM SERVER CASHIER documented as of this encounter Plan of Treatment Not on file documented as of this encounter Visit Diagnoses Not on filedocumented in this encounter Care Teams Sheet Cutter Relationship Specialty Start Date End Date Enrico Roe MD PCP - General FAMILY PRACTICE 11/22/20 12/30/21 documented as of this encounter
--- OUTSIDE RECORDS SUMMARY | 2024-09-23 12:03 | XMS_ITS | Encounter Summary ---
Author Organization [facility] Address [address] [place] [address]. [place] [address] [place] [address] Care Team Providers Care Forming Roll Operator Heavy Duty Name Role Phone Enrico Roe MD Primary Care Provider Rachel vailable Reason for Visit * Reason Comments Follow Up Other right knee, tdap Encounter Details Date Type Department Care Team (Late st Contact Info) Description 08/27/2021 10:40 AM FACILITIES OPERATIONS TECHNICIAN Office Visit [facility] [address] [place] [address] Samantha Salazar, FLIGHT COMMUNICATIONS OPERATOR [address] [place] [address] Follow Up; Other (right knee, tdap ) Social History Tobacco Use Types Packs/Day Years [...] COVID-19? No / Unsure 08/27/2021 10:16 AM FACILITIES OPERATIONS TECHNICIAN documented as of this encounter Last Filed Vital Signs Vital Sign Reading Time Taken Comments Blood Pressure 138/84 08/27/2021 10:57 AM FACILITIES OPERATIONS TECHNICIAN Pulse 84 08/27/2021 10:57 AM FACILITIES OPERATIONS TECHNICIAN Temperature 36.1 ??C (97 ??F) 08/27/2021 10:26 AM FACILITIES OPERATIONS TECHNICIAN Respiratory Rate 20 08/27/2021 10:26 AM FACILITIES OPERATIONS TECHNICIAN Oxygen Saturation 99% 08/27/2021 10:57 AM FACILITIES OPERATIONS TECHNICIAN Inhaled Oxygen Concentration - - Weight 107.5 kg (237 lb) 08/27/2021 10:26 AM FACILITIES OPERATIONS TECHNICIAN Height 176.5 cm (5' 9.5 ) 08/27/2021 10:26 AM CS T Body Mass Index 34.5 08/27/2021 10:26 AM FACILITIES OPERATIONS TECHNICIAN documented in this encounter Patient Instructions * Patient Instructions* Samantha Hernandez NP - 08/27/2021 10:40 AM FACILITIES OPERATIONS TECHNICIAN Images from the original note were not included. Patient Education Patient Education Knee Pain Discharge Instructions About this topic The knee is a large and complex joint. It is made up of 4 bones: the thigh bone, two lower leg bones, and the kneecap. Your kneecap is also called your patella. You may have pain in the front or sideof your knee. What care is needed at home? ?? Ask your doctor what you need to do when you go home. Make sure you ask questions if you do not understand what the doctor says. This way you will know what you need to do. ?? Rest. Allow your injury to heal before you do slow movements. ?? Place an ice pack or a bag of frozen peas wrapped in a towel over the painful part. Never put ice right on the skin. Do not leave the ice on more than 10 to 15 minutes at a time. Ice after activity may help decrease pain and swelling. Never ice before stretching. ?? Prop your knee on pillows to help with swelling. ?? Use a knee brace if the doctor tells you to do this. ?? Apply tape to the kneecap if your therapist or personal trainer teaches you how to do this. ?? Wear good supportive shoes. Get inserts for your shoes if you have flat feet. ?? Do exercises for stretching and strengthening. ?? Lose weight if you are overweight. Being overweight puts stress on your knees. What follow-up care is needed? ?? Your doctors may ask you to make visits to the office to check on your progress. Be sure to keepthese visits. ?? You may also need to see a physical therapist (PT). The PT will teach you exercises to help you get back your strength and motion. What drugs may be needed? The doctor may order drugs to: ?? Help with pain and swelling The doctor may give you a shot of an anti-inflammatory drug called a corticosteroid. This will helpwith swelling. Will physical activity be limited? You may need to rest your knee for a while. You should not do physical activity that makes your health problem worse. If you run, work out, or play sports, you may not be able to do those things until your health problem gets better. What problems could happen? ?? Injury to cartilage leading to arthritis ?? Immobility and weight gain What can be done to prevent this health problem? ?? Stay active and work out to keep your muscles strong and flexible. ?? Warm up slowly and stretch your muscles before you work out. Use good ways to train, such as slowly adding to how far you run. Do not work out if you are overly tired. Take extra care if working out in cold weather. ?? Take breaks often when doing things that use repeat movements. ?? Avoid running on hard or uneven surfaces. ?? Wear shoes with good support and traction. Do not go barefoot. ?? Wear a compression bandage to support your knee. ?? Keep a healthy weight so there is not extra stress on your joints. When do I need to call the doctor? ?? More trouble getting up from a chair, going up and down stairs, or walking ?? Pain, swelling, warmth, numbness, tingling, or discoloration in the calf below the injured or sore knee ?? You are not feeling better in 2 or 3 days or you are feeling worse Helpful tips ?? Try swimming or water aerobics to have less impact on your knee. ?? Avoid running down hills. Walk down instead or try running in a zigzag pattern to lessen the stress on the front of the knee. ?? If going up and down stairs is painful, try going up or down sideways until the pain lessens. Teach Back: Helping You Understand The Teach Back Method helps you understand the information we are giving you. After you talk with the staff, tell them in your own words what you learned. This helps to make sure the staff has described each thing clearly. It also helps to explain things that may have been confusing. Before going home, make sure you can do these: ?? I can tell you about my condition. ?? I can tell you what may help ease my pain. ?? I can tell you what I will do if I have more trouble getting up from a chair, going up or down stairs, or walking. Where can I learn more? [facility] http://kidshealth.org/parent/medical/bones/knee_injuries.html [facility] Choices http://www.nhs.uk/conditions/knee-pain/Pages/Introduction.aspx Last Reviewed Date 2020-07-08 Consumer Information Use and Disclaimer This information is not specific medical advice and does not replace information you receive from your health care provider. This is only a brief summary of general information. It does NOT include all information about conditions, illnesses, injuries, tests, procedures, treatments, therapies, discharge instructions or life-style choices that may apply to you. You must talk with your health care provider for complete information about your health and treatment options. This information should not be used to decide whether or not to accept your health care provider???s advice, instructions or recommendations. Only your health care provider has the knowledge and training to provide advice that is right for you. Copyright Copyright ?? 2020 [employer]. and its affiliates and/or licensors. All rights reserved. LITIES OPERATIONS TECHNICIAN documented in this encounter Progress Notes * Samantha Hernandez NP - 08/27/2021 10:40 AM CST REASON FOR VISIT Follow Up and Other (right knee, tdap ) HPI Presents for a 6 month follow up for HTN History of hypertension Also, patient state he is dealing with ongoing right knee pain. Prior to seeing Dr. Roe patient established with a mental health clinic who recommended testosterone injections. Patient states he only got one injection in the past which made him sick, also hiswife got therefore has not gotten anymore injections. Patient states he has had his Testerone level drawn in the past it was on the lower side but normal. He denies any fatigue, weakness, sex ual performance issues Hypertension 138/88 initially in clinic today Pulse is 101 repeat is 84 Patient states he has whitecoat syndrome Note home readings are anywhere from 118 systolic up to 130 systolic Has been on lisinopril 20 mg daily Denies headaches, vision changes, chest pain, shortness of breath, decreased urine output Right knee pain: No injury or trauma that he is aware of. Is and avid weightlifter unsure if he bothered his knee while lifting weights or not. Pain is not constant, Increased pain when his knee twist or he stops abruptly. No swelling or redness. Has not been using any OTC meds. Healthcare maintenance Patient denies any family history [...] g 0 PHYSICAL EXAM Physical Exam Vitals and nursing note reviewed. Constitutional: General: He is not in acute distress. Appearance: He is well-developed. Comments: Overall muscular in appearance HENT: Head: Normocephalic and atraumatic. Eyes: General: No scleral icterus. Extraocular Movements: Extraocular movements intact. Conjunctiva/sclera: Conjunctivae normal. Cardiovascular: Rate and Rhythm: Normal rate and regular rhythm. Heart sounds: Normal heart sounds. No murmur heard. Pulmonary: Effort: Pulmonary effort is normal. No respiratory distress. Breath sounds: Normal breath sounds. No wheezing. Abdominal: General: Bowel sounds are normal. There is no distension. Palpations: Abdomen is soft. Tenderness: There is no abdominal tenderness. Musculoskeletal: General: Normal range of motion. Cervical back: Normal range of motion. Right knee: Normal. Normal range of motion. No LCL laxity, MCL laxity, ACL laxity or PCL laxity. Normal alignment, normal meniscus and normal patellar mobility. Normal pulse. Instability Tests: Anterior drawer test negative. Posterior drawer test negative. Anterior Seth test negative. Medial Stephen test negative and lateral Stephen test negative. Left knee: Normal. Skin: General: Skin is warm and dry. Findings: No rash. Neurological: General: No focal deficit present. Mental Status: He is alert. Cranial Nerves: No cranial nerve deficit. Sensory: No sensory deficit. Coordination: Coordination normal. Gait: Gait normal. Psychiatric: Mood and Affect: Mood normal. Behavior: Behavior normal. Filed Vitals: 08/27/21 1026 08/27/21 1057 BP: 138/88 138/84 Pulse: 101 84 Resp: 20 Temp: 97 ??F (36.1 ??C) SpO2: 100% 99% Weight: 107.5 kg (237 lb) Height: 5' 9.5 (1.765 m) Body mass index is 34.5 kg/m??. ASSESSMENT AND PLAN 1. Essential hypertension Controlled. Patient instructed to continue current medication. - COMPREHENSIVE METABOLIC PANEL; Future 2. Testosterone deficiency in male Patient states he had this check a year ago, would like to repeat to ensure level has not dropped further. - TESTOSTERONE, FREE & TOTAL; Future 3. Need for xrgplxfenp-rstdymf-hiaespwxd (Tdap) vaccine Administered in clinic, discussed risk and benefits. - [01302] Adacel (Tdap) 4. Acute pain of right knee Discussed RICE intervention. Discussed PT, imaging, and OTC NSAIDs. Patient would like to trial symptomatic care at home prior to PT or xray. Advised patient to get a knee brace and wear during work outs. Patient provided with a list of stretches to do to help with knee pain. Patient advised to follow up with worsening symptoms. Follow up in 6-12 months or sooner if needed. Healthcare maintenance Routine labs as above No family history which would indicate early need for prostate or colon screening Counseled on regular diet and exercise Samantha Hernandez NP 08/27/2021 LITIES OPERATIONS TECHNICIAN documented in this encounter Plan of Treatment Not on file documented as of this encounter Visit Diagnoses Diagnosis Essential hypertension- Primary Unspecified essential hypertension Testosterone deficiency in male Need for qnssxakjqn-gylkyhg-xaisohdpo (Tdap) vaccine Need for prophylactic vaccination with combined tgvcbyepav-kanoqjb-xibvtxoqr (DTP) vaccine Acute pain of right knee documented in this encounter Care Teams Forming Roll Operator Heavy Duty Relationship Specialty Start Date End Date Enrico Roe MD PCP - General FAMILY PRACTICE 11/22/20 12/30/21 documented as of this encounter
--- OUTSIDE RECORDS SUMMARY | 2024-09-23 12:03 | XMS_ITS | Encounter Summary ---
Author Organization [facility] Address [address] [place] [address]. [place], [place] [id number] [place] [address] Care Team Providers Care Internet Specialist Name Role Phone Myron Sandhu MD Primary Care Provider + Reason for Visit * Reason Comments Anxiety Not sleeping-getting worse Encounter Details Date Type Department Care Team (Late st Contact Info) Description 09/16/2022 8:40 AM CUTTER WOODWIND REEDS Office Visit [facility] [address] [place] [address] Myron Sandhu MD [address] [facility] [address] [place] [address] Anxiety (Not sleeping-getting worse) Social History Tobacco Use Types Packs/Day Years [...] CDT Travel History Travel Start Travel End [place] 08/14/2024 09/13/2024 COVID-19 Exposure Response Date Recorded In the last 10 days, have yo u been in contact with someone who was confirmed or suspected to have Coronavirus/COVID-19? No / Unsure 09/16/2022 8:02 AM CUTTER WOODWIND REEDS documented as of this encounter Last Filed Vital Signs Vital Sign Reading Time Taken Comments Blood Pressure 120/86 09/16/2022 8:28 AM CUTTER WOODWIND REEDS Pulse 99 09/16/2022 8:28 AM CUTTER WOODWIND REEDS Temperature 36.7 ??C (98.1 ??F) 09/16/2022 8:28 AM CS T Respiratory Rate 20 09/16/2022 8:28 AM CUTTER WOODWIND REEDS Oxygen Saturation 98% 09/16/2022 8:28 AM CUTTER WOODWIND REEDS Inhaled Oxygen Concentration - - Weight 105.1 kg (231 lb 9.6 oz) 09/16/2022 8:28 AM CUTTER WOODWIND REEDS Height 175.3 cm (5' 9 ) 09/16/2022 8:28 AM CUTTER WOODWIND REEDS Body Mass Index 34.2 09/16/2022 8:28 AM CUTTER WOODWIND REEDS documented in this encounter Patient Instructions * Patient Instructions* Myron Sandhu MD - 09/16/2022 8:40 AM CUTTER WOODWIND REEDS Trial of medicine for mood and sleep and let us know how this does over then next two weeks. ER WOODWIND REEDS documented in this encounter Progress Notes * Myron Sandhu MD - 09/16/2022 8:40 AM CST Chief Complaint: Anxiety (Not sleeping-getting worse) HPI: Arron Field is a 32-year-old male here for complaints of anxiety and difficulty sleeping the past several months. Is seeing a counselor. No previous treatment for mood. ROS: Review of Systems Constitutional: Negative for fever. Respiratory: Negative for cough and shortness of breath. Cardiovascular: Negative for chest pain and palpitations. Gastrointestinal: Negative for abdominal pain. Psychiatric/Behavioral: Negative for suicidal ideas. The patient is nervous/anxious and has insomnia. Physical Exam Constitutional: General: He is not in acute distress. Cardiovascular: Rate and Rhythm: Normal rate and regular rhythm. Pulmonary: Breath sounds: Normal breath sounds. Neurological: Mental Status: He is alert. Psychiatric: Mood and Affect: Mood is anxious. Affect is flat. Speech: Speech normal. Behavior: Behavior is cooperative. [...] Paternal Grandfather ??? Stroke Paternal Grandfather Vitals: 09/16/22 0828 BP: 120/86 BP Location: Left arm Patient Position: Sitting Cuff size: Adult Large Pulse: 99 Temp: 98.1 ??F (36.7 ??C) Weight: 105.1 kg (231 lb 9.6 oz) Height: 5' 9 (1.753 m) Diagnoses/Impression: Anxiety (primary encounter diagnosis) Insomnia, unspecified type Recommendations and Plan: Orders Placed This Encounter ??? mirtazapine (REMERON) 15 MG tablet Sig: Take 1 tablet (15 mg total) by mouth nightly at bedtime. Dispense: 30 tablet Refill: 0 Patient Instructions Trial of medicine for mood and sleep and let us know how this does over then next two weeks. MYRON SANDHU MD Referring Provider: Self Referral PCP: MYRON SANDHU MD ER WOODWIND REEDS documented in this encounter Plan of Treatment Not on file documented as of this encounter Visit Diagnoses Diagnosis Anxiety- Primary Anxiety state, unspecified Insomnia, unspecified type documented in this encounter Additional Health Concerns Assessment Noted Time PHQ-9 Depression Total Score: 9 09/16/20 22 8:27 AM CUTTER WOODWIND REEDS documented as of this encounter Care Teams Internet Specialist Relationship Specialty Start Date End Date Myron Sandhu MD [address] [facility] [address] [place] [id number] PCP - General FAMILY PRACTICE 12/31/21 documented as of this encounter
== END 2024-09-16 10:57 | disposition home or self-care (01) ==
PROVIDERS: Emergency Provider Nurse Practitioner Family
DX: M10.9 Gout, unspecified (principal); I10 Essential (primary) hypertension
CPT/HCPCS: 99213; G0463